=== PATIENT | female | born 1950 | race Caucasian/White ===

== ENCOUNTER 2017-01-10 12:32 | Inpatient (IN) | payer OTHER ==
[~2017-01-10] VITALS: Ht 167.6 cm; Wt 65.5 kg
[~2017-01-10 12:32] MED LIST: LORA-441 PO; SERT-165 PO; TRAZADONE PO
[2017-01-10 12:36] VITALS: Ht 167.6 cm; Wt 65.5 kg
[2017-01-10] MEDS ORDERED: METHYLPREDNISOLONE 125 MG INJ IV STA (13:02)
[2017-01-10] MEDS ORDERED: ALBUTEROL 0.5% (NEB) 2.5 MG/0.5 ML AMP INH STA (13:02)
[2017-01-10] MEDS ORDERED: IPRATROPIUM (NEB) 0.5 MG/2.5 ML AMP INH STA (13:02)
[2017-01-10 13:30] LABS: ABNORMAL IP MESSAGE 1; BASOPHILS % 0.3 % (0.0-2.0); EOSINOPHILS # 0.2 10^3/ul (0.0-0.5); EOSINOPHILS % 1.9 % (0.0-7.0); HEMATOCRIT 35.9 % (37.0-47.0); HEMOGLOBIN 12.3 g/dl (12.0-16.0); LYMPHOCYTES # 0.9 10^3/ul (0.8-2.9); LYMPHOCYTES % 9.8 % (15.0-51.0); MEAN CORPUSCULAR HEMOGLOBIN 31.6 pg (29.0-33.0); MEAN CORPUSCULAR HGB CONC 34.3 g/dl (32.0-37.0); MEAN CORPUSCULAR VOLUME 92.3 fl (82.0-101.0); MEAN PLATELET VOLUME 9.2 fl (7.4-10.4); MONOCYTE # 0.8 10^3/ul (0.3-0.9); MONOCYTES % 9.4 % (0.0-11.0); NEUTROPHIL # 6.8 10^3/ul (1.6-7.5); NEUTROPHILS % 77.4 % (39.0-77.0); PLATELET COUNT 232 10^3/UL (140-415); RED BLOOD COUNT 3.89 10^6/ul (4.20-5.40); WHITE BLOOD COUNT 8.9 10^3/ul (4.8-10.8)
[2017-01-10 13:40] LABS: POSITIVE DIFF @See below
[2017-01-10 13:53] LABS: ANION GAP 16 (8-16); BLOOD UREA NITROGEN 20 mg/dl (7-20); CALCIUM 9.8 mg/dl (8.4-10.2); CARBON DIOXIDE 26 mmol/L (21-31); CHLORIDE 103 mmol/L (97-110); CREATININE 0.99 mg/dl (0.44-1.00); GLUCOSE 86 mg/dl (70-220); POTASSIUM 3.3 mmol/L (3.5-5.1); SODIUM 142 mmol/L (135-144)
--- NOTE | 2017-01-10 13:58 | RADRPT ---
PROCEDURE: Chest Radiograph. CLINICAL INDICATION: Chest pain. TECHNIQUE: Single frontal chest radiograph. COMPARISON: 01/01/2016 FINDINGS: The cardiomediastinal silhouette is within normal limits. There is interval development of mild tae ateral lower lobe atelectasis versus infiltrate. Minimal infiltrate is also seen in the right mid l chuy. Otherwise, there is no significant interval change. The bones are intact. IMPRESSION: Interval development of bilateral lower lobe infiltrate versus atelectasis. Mild right mid lung infi ltrate, also new. RPTAT: JJ .Ritesh Sahu MD, MD Date Time Electronically viewed and signed by .Ritesh Sahu MD, on 01/10/2017 13:58 .A/
[2017-01-10] MEDS ORDERED: LEVO75TA65 PO (14:02)
[2017-01-10] MEDS ORDERED: SERT100T PO (14:04)
[2017-01-10] MEDS ORDERED: ADV25050 INHALATION (14:05)
[2017-01-10] MEDS ORDERED: TRAZ300T15 PO (14:05)
[2017-01-10] MEDS ORDERED: LORA0.5T PO (14:05)
[2017-01-10] MEDS ORDERED: ALBU8.5H3 INH (14:06)
[2017-01-10] MEDS ORDERED: FLUT16SP17 NASAL (14:06)
[2017-01-10] MEDS ORDERED: SODIUM CHLORIDE 0.9% 1L BAG IV* STA (14:08)
[2017-01-10 14:12] LABS: TROPONIN-I < 0.012 ng/ml (0.00-0.12)
[2017-01-10] MEDS ORDERED: CEFTRIAXONE 1 GM/50 ML (PMX) 50 ML IVPB STA (14:30)
[2017-01-10] MEDS ORDERED: AZITHROMYCIN 500MG/NS (PMX) 250 ML IV STA (14:30)
[2017-01-10] MEDS ORDERED: SOD CHLORIDE 0.9% 1,000 ML IV SCH (14:49)
--- NOTE | 2017-01-10 14:54 | ERD ---
ER Documentation Chief Complaint Chief Complaint sent by pmd for low o2 sat,cough, sob,colds,L ear pain and ORTEGA since friday HPI This is a 66-year-old female who presents to the emergency room for evaluation of shortness of breath. This patient was seen at her primary care physician's office, Dr. Glass. The patient was seen by another physician and was sent to the emergency room for evaluation of cough, shortness of breath and low oxygen. According to the physician the patient did have pulse oxygen level of 85%. She states that she is short of breath and has had a dry cough. She has been using her albuterol without relief. She denies any active chest pain at this time but does state when she takes a deep breath and she does feel slight chest pain and states that her cough is worse with deep inspiration as well. The patient denies any fevers or chills but does state that she is had a left earache and a mild headache. ROS All systems reviewed and are negative except as per history of present illness. Medications Home Meds Reported Medications Fluticasone Propionate* (Fluticasone Propionate* Nasal) 50 Mcg/Guion - 16 Gm Guion.susp, 1 SPRAY NASAL DAILY, #1 BOTTLE TO EACH NOSTRIL 01/10/17 Albuterol Sulfate* (Proair HFA*) 8.5 Gm Hfa.aer.ad, 2 PUFF INH Q6H Y for WHEEZING AND SOB, #1 INHALER 01/10/17 Salmeterol Xinaf/Fluticasone* (Advair*) 250-50 Diskus Inhaler, 1 INH INHALATION BID, #1 INHALER 01/10/17 Trazodone Hcl* (Trazodone Hcl*) 300 Mg Tablet, 300 MG PO QHS, #30 TAB 01/10/17 Lorazepam* (Lorazepam*) 0.5 Mg Tablet, 0.25 MG PO TID Y for ANXIETY, TAB 01/10/17 Sertraline Hcl* (Zoloft*) 100 Mg Tablet, 250 MG PO QHS, #60 TAB 01/10/17 Levothyroxine Sodium* (Levoxyl*) 75 Mcg Tablet, 75 MCG PO BEFORE BREAKFAST, #30 TAB 01/10/17 Discontinued Reported Medications Lorazepam* (Ativan*) 0.5 Mg Tablet, 0.5 MG PO DAILY Y 02/05/13 Sertraline Hcl* (Sertraline Hcl*) 100 Mg Tablet, 150 MG PO DAILY 02/05/13 [Trazadone] No Conflict Check, 100 MG PO DAILY 02/05/13 Allergies Allergies: Coded Allergies: Sulfa (Sulfonamide Antibiotics) (Verified Allergy, Unknown, STOMACHE ACHE , 01/10/17) PMhx/Soc History of Surgery: Yes (ovarian cyst, hysterectomy, appendectomy) Anesthesia Reaction: No Hx Neurological Disorder: No Hx Respiratory Disorders: Yes (asthma) Hx Cardiac Disorders: No Hx Psychiatric Problems: No Hx Miscellaneous Medical Probl: No Hx Alcohol Use: Yes (socially) Hx Substance Use: No Hx Tobacco Use: No (quit 5 years ago) Smoking Status: Never smoker Physical Exam Vitals Vital Signs Date Time Temp Pulse Resp B/P Pulse Ox O2 Delivery O2 Flow Rate FiO2 01/10/17 13:52 99 18 116/63 98 Nasal Cannula 2.0 01/10/17 13:15 Nasal Cannula 2 01/10/17 13:10 92 22 93 Nasal Cannula 2.0 01/10/17 12:36 99.9 97 22 119/59 88 Physical Exam INITIAL VITAL SIGNS: Reviewed by me GENERAL: The patient is well developed and appropriate for usual state of health in no apparent distress HEENT: Pupils equal, round, and reactive to light. EOMI. There is no scleral icterus. NECK: C-spine is soft and supple, there is no meningismus. There is no cervical lymphadenopathy. LUNGS: Coarse breath sounds bilaterally with end expiratory wheezing bilaterally HEART: Regular rate and rhythm, no murmurs, clicks, rubs or gallops. ABDOMEN: Soft, non-tender, non-distended. There are bowel sounds in all four quadrants. No rebound or guarding. EXTREMITIES: There is no peripheral cyanosis or edema. No focal swelling or erythema. NEUROLOGICAL: The patient moves all four extremities with 5/5 strength. Cranial nerves II - XII are intact. Normal gait. Alert and oriented SKIN: There is no apparent rash or petechiae. HEME/LYMPHATIC: There is no evidence of excessive bruising or lymphedema. PSYCHIATRIC: The patient does not appear anxious or depressed. Result Diagram: 01/10/17 1310 01/10/17 1310 Results 24 hrs Laboratory Tests Test 01/10/17 13:10 White Blood Count 8.910^3/ul Red Blood Count 3.8910^6/ul Hemoglobin 12.3g/dl Hematocrit 35.9% Mean Corpuscular Volume 92.3fl Mean Corpuscular Hemoglobin 31.6pg Mean Corpuscular Hemoglobin Concent 34.3g/dl Red Cell Distribution Width 13.0% Platelet Count 23230^3/UL Mean Platelet Volume 9.2fl Neutrophils % 77.4% Lymphocytes % 9.8% Monocytes % 9.4% Eosinophils % 1.9% Basophils % 0.3% Nucleated Red Blood Cells % 0.0/100WBC Neutrophils # 6.810^3/ul Lymphocytes # 0.910^3/ul Monocytes # 0.810^3/ul Eosinophils # 0.210^3/ul Basophils # 0.010^3/ul Nucleated Red Blood Cells # 0.010^3/ul Sodium Level 142mmol/L Potassium Level 3.3mmol/L Chloride Level 103mmol/L Carbon Dioxide Level 26mmol/L Anion Gap 16 Blood Urea Nitrogen 20mg/dl Creatinine 0.99mg/dl Glucose Level 86mg/dl Calcium Level 9.8mg/dl Troponin I < 0.012ng/ml Current Medications Medications (Trade) Dose Ordered Sig/Ibeth Route PRN Reason Start Time Stop Time Status Last Admin Dose Admin Albuterol (Proventil 0.5% (Neb)) 10 mg ONCE STAT INH 01/10/17 13:02 01/10/17 13:03 DC 01/10/17 13:10 Ipratropium Black (Atrovent 0.02% (Neb)) 1 mg ONCE STAT INH 01/10/17 13:02 01/10/17 13:03 DC 01/10/17 13:10 Methylprednisolone Sodium Succinate (Solu-Medrol) 125 mg ONCE STAT IV 01/10/17 13:02 01/10/17 13:03 DC 01/10/17 13:14 Sodium Chloride 2100 ml 2,100 ml BOLUS OVER 2 HOURS STAT IV* 01/10/17 14:08 01/10/17 14:10 DC 01/10/17 14:40 Azithromycin 250 ml @ 250 mls/hr ONCE STAT IV 01/10/17 14:30 01/10/17 15:29 Ceftriaxone Sodium (Rocephin) 50 ml @ 100 mls/hr ONCE STAT IVPB 01/10/17 14:30 01/10/17 14:59 01/10/17 14:39 Procedures/MDM EKG: Rate/Rhythm: [Normal Sinus Rhythm] QRS, ST, T-waves: [No changes consistent w/ acute ischemia] Impression: [No evidence of ischemia or arrhythmia] Chest X-ray 1V Interpreted by me: Soft Tissue: No acute abnormalities Bones: No acute abnormalities Mediastinum/Cardiac Silhouette/Lungs: Interval development of bilateral lower lobe infiltrate versus atelectasis. Mild right mid lung infiltrate, also new. This is a 66-year-old female who presents to the emergency room for evaluation of shortness of breath. When I evaluated this patient she had a pulse ox of 88 % on room air. She has coarse breath sounds bilaterally with end expiratory wheezing. The patient was slightly tachypneic with a respiratory rate of 22 and her heart rate was 92 bpm. The patient underwent lab work and was given a breathing treatment. This patient did undergo an x-ray which does show bilateral infiltrates and mid right lung infiltrate. The patient does not have any leukocytosis however given her age, hypoxia, and tachypnea she will be placed in for admission at this time. The patient was given 30 cc/kg of IV normal saline, blood and urine cultures were obtained and the patient was started on Rocephin and azithromycin. The patient will be admitted to her panel physician at this time and will be placed on the telemetry floor for acute hypoxic respiratory failure with pneumonia Critical Care: Excluding all billable procedures Time: 38 minutes Treatments/Evaluations: Close monitoring and treatment of unstable vital signs, cardiorespiratory, and neurologic status, while maintaining tight balance of fluid, respiratory, and cardiac interventions. Departure Diagnosis: Primary Impression: Acute respiratory failure with hypoxia Additional Impression: Bilateral pneumonia Condition: [place] SHERIDANDAVID KHAN Jan 10, 2017 14:54
[2017-01-10] MEDS ORDERED: ONDANSETRON 4 MG INJ IV PRN ×2 (15:00→16:00)
[2017-01-10] MEDS ORDERED: ACETAMINOPHEN 325 MG TAB PO PRN ×2 (15:00→16:00)
[2017-01-10 15:49] VITALS: PULSE 104
[2017-01-10 16:00] VITALS: PULSE 104
[2017-01-10] MEDS ORDERED: DOCUSATE SODIUM 100 MG CAP PO PRN (16:00)
[2017-01-10] MEDS ORDERED: NACL 0.9% 3 ML SYG IV SCH (16:00)
[2017-01-10] MEDS ORDERED: MAGNESIUM HYDROXIDE 30ML CUP PO PRN (16:00)
[2017-01-10] MEDS ORDERED: GUAIFENESIN/CODEINE 5ML CUP PO PRN (16:00)
[2017-01-10 16:20] VITALS: BP 123/68; RESP 18
[2017-01-10] MEDS ORDERED: POTASSIUM CHLORIDE (SR) 20 MEQ TAB PO STA (16:21)
--- NOTE | 2017-01-10 16:26 | HP ---
Date/Time of Note Date/Time of Note DATE: 01/10/17 TIME: 16:08 Assessment/Plan VTE Prophylaxis VTE Prophylaxis Intervention: LMWH Lines/Catheters IV [facility] (from [facility]): Saline Lock Assessment/Plan Assessment/Plan 1. Sepsis secondary to Pneumonia with - Patient found to have tachycardia, tachypnea and elevated lactic acid of 2.6 - given fluids in ED and started on IV antibiotics - Will continue to trend lactic acids - CXR showed bilateral infiltrates vs atelectasis with Mild right mid lung infiltrate 2. Acute respiratory failure with hypoxia secondary to asthma exacerbation - Neb treatments - O2 to maintain saturating >90% - Pulmonology consult placed for further evaluation 3. h/o Bronchial asthma since - Patient has yearly exacerbations and states she needs her rescue inhaler at least 2-3 times a week - On advair 250/50 BID - No wheezing appreciated so no need for steroids at this time - Not on home O2 - Does not follow with director of social work as outpatient 4. Depression - Continue on home medications 5. Anxiety - Continue on home medications 6. Insomnia - Trazadone qhs 7. hypokalemia - 3.3 replaced 8. Hypothyroidism - Will check TSH - continue on thyroid replacement 9. Diet - Regular diet 10. DVT ppx - Lovenox 11. GI ppx - PPI 12. Code Status - DNR/DNI 13. Disposition - Admit to telemetry for close observation given frequent desaturations HPI/ROS Admit Date/Time Admit Date/Time Jan 10, 2017 at 14:50 Hx of Present Illness 66 yo F with PMH bronchial asthma with year exacerbations, depression, anxiety, insomnia, and hypothyroidism presented to ED after being sent by her PCP for hypoxia. Patient recently returned from a trip to [place] and [place] and has been experiencing coughing since Friday. Patient states people she was traveling with developed a cold which they passed to her. She states her symptoms started as a head cold and progressed to SOB with associated productive cough with yellow/white sputum, occasional wheezing, and subjective fevers. Patient states she has been getting progressively worse and using her rescue inhaler with no relief. She has also been using guaifenesin as well for cough. She was found to be saturating 85% on room air at her PCP office. When she presented to the ED she was found to be saturating 88% and given neb treatments, steroids, and started on antibiotics after finding of pneumonia on CXR. Patient states she has yearly exacerbations and usually presents to the ED but is discharged after stabilized. Patient has never needed to be intubated and is DNR/DNI. Denies any chest pain, dizziness, nausea, vomiting, or GI issues. ROS All 12 systems reviewed and pertinent positives per HPI. All others reviewed and are negative. Constitutional: No chills, No disoriented, No fatigue, No nausea Eyes: no complaints ENT: congestion, discharge, No bleeding, No sore throat Respiratory: cough, pain, shortness of breath, sputum, wheezing Cardiovascular: No chest pain, No edema, No lightheadedness, No orthopenea, No palpitations Gastrointestinal: No blood, No constipation, No diarrhea, No nausea, No pain, No vomiting Musculoskeletal: no complaints Skin: no complaints Neurologic: no complaints Endocrine: no complaints Lymphatic: no complaints Psychological: anxiety, depression, other (insomnia) Immunologic: no complaints PMH/Family/Social Past Medical History Medical History: hypothyroid, other (depression, anxiety, insomnia, brochial asthma) Past Surgical History Past Surgical Hx: other (hysterectomy, lump removed from back, cysts removed from ovaries) Family History Significant Family History: heart disease Social History Alcohol Use: none Smoking Status: Never smoker Drug Use: none Exam/Review of Systems Vital Signs Vitals Vital Signs Date Time Temp Pulse Resp B/P Pulse Ox O2 Delivery O2 Flow Rate FiO2 01/10/17 15:49 104 01/10/17 15:12 18 126/77 96 Nasal Cannula 2.0 01/10/17 12:36 99.9 Exam Constitutional: alert, oriented, well developed, No distress Psych: nl mood/affect Head: atraumatic, normocephalic Eyes: EOMI, PERRL, nl sclera ENMT: mucosa pink and moist Neck: non-tender, supple Respiratory: clear to auscultation, diminished breath sounds, No crackles/rales, No wheezing Cardiovascular: regular rate and rhythm, No irregular rhythm, No murmurs/extra sounds, No systolic murmur Gastrointestinal: bowel sounds, non-tender, soft, No distended, No rebound or guarding Musculoskeletal: nl extremities to inspection, No joint tenderness Extremities: No clubbing, No cyanosis, No edema Neurological: LOCAL OPERATOR II-XII intact, nl mental status, nl speech Skin: nl turgor Lymph: nl lymph nodes Labs Result Diagram: 01/10/17 1310 01/10/17 1310 Medications Medications Current Medications Sodium Chloride (NS) 1,000 ml @ 80 mls/hr [id number] IV Last administered on t 15:42; Admin Dose 80 MLS/HR; Start 01/10/17 at 14:49; Stop 01/11/17 at 03:18 Fluticasone Propionate (Flonase 0.05% Nasal) 1 spray DAILY NASAL ; Start at 17:00 Lorazepam (Ativan) 0.25 mg TID PRN PO ANXIETY; Start 01/10/17 at 16:00 Salmeterol Xinafoate/ Fluticasone (Advair 250/50 Diskus) 1 inh BID INH ; Start 01/10/17 at 17:00 Sertraline HCl (Zoloft) 250 mg QHS PO ; Start 01/10/17 at 21:00; Status UNV Trazodone HCl (Desyrel) 300 mg QHS PO ; Start 01/10/17 at 21:00; Status UNV Procedures Procedures PROCEDURE: Chest Radiograph. CLINICAL INDICATION: Chest pain. TECHNIQUE: Single frontal chest radiograph. COMPARISON: 01/01/2016 FINDINGS: The cardiomediastinal silhouette is within normal limits. There is interval development of mild bilateral lower lobe atelectasis versus infiltrate. Minimal infiltrate is also seen in the right mid lung. Otherwise, there is no significant interval change. The bones are intact. IMPRESSION: Interval development of bilateral lower lobe infiltrate versus atelectasis. Mild right mid lung infiltrate, also new. MALVIN NASH MD Jan 10, 2017 16:18
[2017-01-10] MEDS: PANTOPRAZOLE (EC) 40 MG TAB PO SCH (16:54)
[2017-01-10] MEDS: ENOXAPARIN 40 MG/0.4 ML SYG SC SCH (16:55)
[2017-01-10] MEDS: ALBUTEROL 0.083% (NEB) 2.5 MG/3 ML AMP HHN SCH ×2 (17:02→21:20)
[2017-01-10] MEDS: FLUTICASONE 0.05% 16 GM NAS SPRAY NASAL SCH (17:57)
[2017-01-10] MEDS: SALMETEROL/FLUTICASONE 250/50 INHA INH SCH (17:58)
[2017-01-10 19:33] LABS: CREATINE KINASE 50 IU/L (23-200)
[2017-01-10 19:46] LABS: CK-MB 1.05 ng/ml (0.0-2.4)
[2017-01-10 19:57] LABS: TROPONIN-I < 0.012 ng/ml (0.00-0.12)
[2017-01-10] MEDS ORDERED: POTASSIUM CHLORIDE (SR) 20 MEQ TAB PO ONE (20:00)
[2017-01-10 20:21] VITALS: PULSE 88
[2017-01-10 20:35] VITALS: BP 128/61; RESP 18
[2017-01-10] MEDS: SERTRALINE 100 MG TAB PO SCH (20:43)
[2017-01-10] MEDS: traZODone 100 MG TAB PO SCH (20:43)
[2017-01-10] MEDS ORDERED: SOD CHLORIDE 0.9% 500 ML IV ONE (23:00)
[2017-01-11] VITALS (13 sets, daily range): BP systolic 106–127; BP diastolic 59–66; PULSE 62–94; RESP 17–20
[2017-01-11] MEDS: LORAZEPAM 0.5 MG TAB PO PRN ×2 (00:22→23:24)
[2017-01-11 01:52] LABS: CREATINE KINASE 48 IU/L (23-200)
[2017-01-11 02:05] LABS: CK-MB 1.44 ng/ml (0.0-2.4)
[2017-01-11 02:09] LABS: TROPONIN-I < 0.012 ng/ml (0.00-0.12)
[2017-01-11] MEDS: LEVOTHYROXINE 75 MCG TAB PO SCH (07:26)
[2017-01-11] MEDS: PANTOPRAZOLE (EC) 40 MG TAB PO SCH (07:26)
[2017-01-11 08:18] LABS: ABNORMAL IP MESSAGE 1; HEMATOCRIT 30.8 % (37.0-47.0); HEMOGLOBIN 10.3 g/dl (12.0-16.0); MEAN CORPUSCULAR HEMOGLOBIN 31.3 pg (29.0-33.0); MEAN CORPUSCULAR HGB CONC 33.4 g/dl (32.0-37.0); MEAN CORPUSCULAR VOLUME 93.6 fl (82.0-101.0); MEAN PLATELET VOLUME 9.6 fl (7.4-10.4); PLATELET COUNT 204 10^3/UL (140-415); RED BLOOD COUNT 3.29 10^6/ul (4.20-5.40); RED CELL DISTRIBUTION WIDTH 13.2 % (11.5-14.5); WHITE BLOOD COUNT 9.9 10^3/ul (4.8-10.8)
[2017-01-11] MEDS: ALBUTEROL 0.083% (NEB) 2.5 MG/3 ML AMP HHN SCH ×4 (08:30→20:00)
[2017-01-11 08:31] LABS: POSITIVE DIFF @See below
[2017-01-11 08:36] LABS: CALCIUM 9.4 mg/dl (8.4-10.2); CREATININE 0.69 mg/dl (0.44-1.00); MAGNESIUM 1.9 mg/dl (1.7-2.5); PHOSPHORUS 2.6 mg/dl (2.5-4.9); POTASSIUM 5.4 mmol/L (3.5-5.1)
[2017-01-11 09:05] LABS: THYROID STIMULATING HORMONE 0.923 MIU/L (0.465-4.680)
[2017-01-11] MEDS: FLUTICASONE 0.05% 16 GM NAS SPRAY NASAL SCH (09:26)
[2017-01-11] MEDS: SALMETEROL/FLUTICASONE 250/50 INHA INH SCH ×2 (09:26→20:52)
--- NOTE | 2017-01-11 11:21 | PN ---
Date/Time of Note Date/Time of Note DATE: 01/11/17 TIME: 11:21 Assessment/Plan VTE Prophylaxis VTE Prophylaxis Intervention: LMWH Lines/Catheters [facility] Saline Lock Urinary Cath still in place: No (NO F/C) Assessment/Plan Assessment/Plan 1. Sepsis secondary to Pneumonia - Improving and remains afebrile - WBC improving and Lactic acid normalized - Antibiotics on board - CXR showed bilateral infiltrates vs atelectasis with Mild right mid lung infiltrate - incentive spirometry 2. Acute respiratory failure with hypoxia secondary to asthma exacerbation - Neb treatments - O2 to maintain saturating >90% - Pulmonology consult placed for further evaluation 3. h/o Bronchial asthma since - Patient has yearly exacerbations and states she needs her rescue inhaler at least 2-3 times a week - On advair 250/50 BID - No wheezing appreciated so no need for steroids at this time - Does not follow with solar mechanical engineer as outpatient 4. Depression - Continue on home medications 5. Anxiety - Continue on home medications 6. Insomnia - Trazodone qhs 7. hyperkalemia - Most likely secondary to being replaced yesterday - No acute issues and will monitor. 8. Hypothyroidism - TSH nl - continue on thyroid replacement 9. Congestion - Will try Claritin D and Mucinex as needed 10. Disposition - Awaiting Pulm consult Subjective 24 Hr Interval Summary Free Text/Dictation Patient states feeling better but still experiencing nasal congestion and coughing up sputum. Denies any new complaints and no acute overnight events. Exam/Review of Systems Vital Signs Vitals Vital Signs Date Time Temp Pulse Resp B/P Pulse Ox O2 Delivery O2 Flow Rate FiO2 01/11/17 11:20 99.3 88 17 127/63 93 01/11/17 09:33 Nasal Cannula 6.0 01/11/17 08:30 21 Intake and Output 01/10/17 01/10/17 01/11/17 15:00 23:00 07:00 Intake Total 550 ml Balance 550 ml Exam Constitutional: alert, oriented, well developed, No distress Head: atraumatic, normocephalic Eyes: EOMI, PERRL, nl sclera ENMT: mucosa pink and moist Respiratory: clear to auscultation, diminished breath sounds, No crackles/rales , No wheezing Cardiovascular: regular rate and rhythm, No irregular rhythm, No murmurs/extra sounds, No systolic murmur Gastrointestinal: bowel sounds, non-tender, soft, No distended, No rebound or guarding Musculoskeletal: nl extremities to inspection, No joint tenderness Extremities: No clubbing, No cyanosis, No edema Neurological: MEDICAL EQUIPMENT REPAIR TECHNICIAN II-XII intact, nl mental status, nl speech Lymph: nl lymph nodes Results Result Diagram: 01/11/17 0712 01/11/17 0712 Results 24 hrs Laboratory Tests Test 01/10/17 13:10 01/10/17 14:15 01/10/17 16:11 01/10/17 19:09 White Blood Count 8.9 # Red Blood Count 3.89 L Hemoglobin 12.3 Hematocrit 35.9 L Mean Corpuscular Volume 92.3 Mean Corpuscular Hemoglobin 31.6 Mean Corpuscular Hemoglobin Concent 34.3 Red Cell Distribution Width 13.0 Platelet Count 232 Mean Platelet Volume 9.2 # Neutrophils % 77.4 H Lymphocytes % 9.8 L Monocytes % 9.4 Eosinophils % 1.9 Basophils % 0.3 Nucleated Red Blood Cells % 0.0 Neutrophils # 6.8 Lymphocytes # 0.9 Monocytes # 0.8 Eosinophils # 0.2 Basophils # 0.0 Nucleated Red Blood Cells # 0.0 Sodium Level 142 Potassium Level 3.3 L Chloride Level 103 Carbon Dioxide Level 26 Anion Gap 16 Blood Urea Nitrogen 20 Creatinine 0.99 Glucose Level 86 Calcium Level 9.8 Troponin I < 0.012 < 0.012 Lactic Acid Level 2.8 *H 2.0 2.8 *H Creatine Kinase 50 Creatine Kinase Index 2.1 Creatinine Kinase MB (Mass) 1.05 Test 01/10/17 22:41 01/11/17 01:01 01/11/17 07:12 Lactic Acid Level 2.3 *H 1.6 0.9 Creatine Kinase 48 Creatine Kinase Index 3.0 Creatinine Kinase MB (Mass) 1.44 Troponin I < 0.012 White Blood Count 9.9 Red Blood Count 3.29 L Hemoglobin 10.3 L Hematocrit 30.8 L Mean Corpuscular Volume 93.6 Mean Corpuscular Hemoglobin 31.3 Mean Corpuscular Hemoglobin Concent 33.4 Red Cell Distribution Width 13.2 Platelet Count 204 Mean Platelet Volume 9.6 Neutrophils % Lymphocytes % Monocytes % Eosinophils % Basophils % Nucleated Red Blood Cells % 0.0 Neutrophils # Lymphocytes # Monocytes # Eosinophils # Basophils # Nucleated Red Blood Cells # Sodium Level 146 H Potassium Level 5.4 #H Chloride Level 113 H Carbon Dioxide Level 26 Anion Gap 12 Blood Urea Nitrogen 18 Creatinine 0.69 Glucose Level 123 Calcium Level 9.4 Phosphorus Level 2.6 Magnesium Level 1.9 Albumin 3.0 L Thyroid Stimulating Hormone (TSH) 0.923 Medications Medications Current Medications Fluticasone Propionate (Flonase 0.05% Nasal) 1 spray DAILY NASAL Last administered on 01/11/17 09:26; Admin Dose 1 SPRAY; Start 01/10/17 at 17:00 Lorazepam (Ativan) 0.25 mg TID PRN PO ANXIETY Last administered on 01/11/17 00:22; Admin Dose 0.25 MG; Start 01/10/17 at 16:00 Salmeterol Xinafoate/ Fluticasone (Advair 250/50 Diskus) 1 inh BID INH Last administered on 01/11/17 09:26; Admin Dose 1 INH; Start 01/10/17 at 17:00 Sertraline HCl (Zoloft) 250 mg QHS PO Last administered on 01/10/17 20:43; Admin Dose 250 MG; Start 01/10/17 at 21:00 Trazodone HCl (Desyrel) 300 mg QHS PO Last administered on 01/10/17 20:43; Admin Dose 300 MG; Start 01/10/17 at 21:00 Ondansetron HCl (Zofran Inj) 4 mg Q6H PRN IV NAUSEA AND/OR VOMITING; Start at 16:00 Acetaminophen (Tylenol Tab) 650 mg Q6H PRN PO PAIN LEVEL 1-3 OR FEVER Last administered on 01/10/17 16:54; Admin Dose 650 MG; Start 01/10/17 at 16:00 Docusate Sodium (Colace) 100 mg Q12H PRN PO CONSTIPATION; Start 01/10/17 at 16 :00 Magnesium Hydroxide (Milk Of Mag) 30 ml DAILY PRN PO CONSTIPATION; Start 01/10 at 16:00 Pantoprazole (Protonix Tab) 40 mg DAILY@06 PO Last administered on 01/11/17 07:26; Admin Dose 40 MG; Start 01/10/17 at 17:00 Enoxaparin Sodium 40 mg 40 mg Q24H SC Last administered on 10/20/17at 16:55; Admin Dose 40 MG; Start 01/10/17 at 17:00 Ceftriaxone Sodium 50 ml @ 100 mls/hr Q24H IVPB ; Start 01/11/17 at 13:00 Azithromycin (Zithromax 500mg/ NS (Pmx)) 250 ml @ 250 mls/hr Q24H IVPB ; Start 01/11/17 at 13:00 Loratadine/ Pseudoephedrine Sulfate (Claritin-D 12 Hr) 1 tab Q12 PO ; Start at 12:30; Stop 01/16/17 at 12:29 Guaifenesin/ Dextromethorphan (Mucinex Dm) 1 tab BID PO ; Start 01/11/17 at 12: 30 MALVIN NASH MD Jan 11, 2017 11:21
[2017-01-11 11:33] LABS: BURR CELLS 1+ (0-0); METAMYELOCYTES %M 1 % (0-0); MONOCYTES % (M) 3 % (0-11); MYELOCYTES % (M) 1 % (0-0); OVALOCYTES 1+ (0-0); PLATELET ESTIMATE NORMAL; POIKILOCYTOSIS 2+ (0-0)
[2017-01-11] MEDS ORDERED: GUAIFENESIN/CODEINE 5ML CUP PO PRN (12:00)
[2017-01-11] MEDS: GUAIFENESIN/DM (SR) TAB PO SCH ×2 (12:44→20:53)
[2017-01-11] MEDS: LORATADINE/PSEUDOEPHED (SR) TAB PO SCH ×2 (12:44→20:54)
[2017-01-11] MEDS: CEFTRIAXONE 1 GM/50 ML (PMX) 50 ML IVPB SCH (12:45)
[2017-01-11] MEDS: AZITHROMYCIN 500MG/NS (PMX) 250 ML IVPB SCH (14:13)
[2017-01-11] MEDS: ENOXAPARIN 40 MG/0.4 ML SYG SC SCH (17:14)
[2017-01-11] MEDS: METHYLPREDNISOLONE 40 MG INJ IV SCH (20:53)
[2017-01-11] MEDS: traZODone 100 MG TAB PO SCH (20:53)
[2017-01-11] MEDS: SERTRALINE 100 MG TAB PO SCH (20:54)
[2017-01-12] VITALS (12 sets, daily range): BP systolic 115–148; BP diastolic 61–81; PULSE 64–82; RESP 18–21
--- NOTE | 2017-01-12 01:55 | RADRPT ---
AMENDMENT: 01/12/2017 2:02:53 AM Pablo James MD ADDENDUM: Correction: FINDINGS: No evident thoracic aortic or coronary artery calcifications. PROCEDURE: CT Chest without contrast. CLINICAL INDICATION: Right lung interstitial changes. TECHNIQUE: CT scan of the chest without contrast was performed on a multidetector high-resolution CT scanner. Coronal and sagittal reformatted images were obtained from the axial source images. The total exam CTDI equals 6.90 mGy and the total exam DLP equals 250.77. mGy-cm. COMPARISON: Plain film chest dated 01/10/2017 FINDINGS: Dense bilateral dependent lower lobe air space disease with air bronchograms. Findings are compatibl e with bilateral lower lobe pneumonias. Patchy air space disease in the right middle lobe and in the dependent posterior right upper lobe. Geographic ground-glass opacification in the right apex measu res 73 x 44 x 35 mm, and this may represent inflammatory changes of pneumonia versus adenocarcinoma in situ. Mild inflammatory changes in the region of the anterior medial right upper lobe and lingula The mediastinum is unremarkable without evidence for mass or lymphadenopathy. The vascular structur es of the mediastinum are normal in course and caliber. Aortic vascular calcifications and coronary artery calcifications are present. The heart size is normal without evidence for pericardial thick ening or effusion. The axillary regions, subpectoral regions, and supraclavicular regions are all unremarkable. The brar rrounding chest wall is unremarkable. Imaging obtained through the upper abdomen reveals no acute a bnormality. The surrounding osseous structures are remarkable for degenerative spondylosis of the s pine. No osteolytic or osteoblastic lesion is detected. IMPRESSION: 1. Dense bilateral lung base pneumonias with air bronchograms. 2. Patchy pneumonias in right middle lobe and right upper lobe. 3. Large geographic region of ground-glass opacity in right apex may represent inflammatory changes of pneumonia versus adenocarcinoma in situ. RPTAT: [facility] Physician [place] Date Time Electronically viewed and signed by Physician [place] on 01/12/2017 02:04 RS/
[2017-01-12] MEDS: PANTOPRAZOLE (EC) 40 MG TAB PO SCH (06:48)
[2017-01-12] MEDS: LEVOTHYROXINE 75 MCG TAB PO SCH (06:49)
[2017-01-12] MEDS: GUAIFENESIN/DM (SR) TAB PO SCH ×2 (09:10→20:27)
[2017-01-12] MEDS: METHYLPREDNISOLONE 40 MG INJ IV SCH ×2 (09:10→20:26)
[2017-01-12] MEDS: FLUTICASONE 0.05% 16 GM NAS SPRAY NASAL SCH (09:11)
[2017-01-12] MEDS: LORATADINE/PSEUDOEPHED (SR) TAB PO SCH ×2 (09:11→22:45)
[2017-01-12] MEDS: SALMETEROL/FLUTICASONE 250/50 INHA INH SCH ×2 (09:11→20:26)
[2017-01-12 09:12] LABS: ABNORMAL IP MESSAGE 1; HEMATOCRIT 30.9 % (37.0-47.0); HEMOGLOBIN 10.4 g/dl (12.0-16.0); MEAN CORPUSCULAR HEMOGLOBIN 31.4 pg (29.0-33.0); MEAN CORPUSCULAR HGB CONC 33.7 g/dl (32.0-37.0); MEAN CORPUSCULAR VOLUME 93.4 fl (82.0-101.0); MEAN PLATELET VOLUME 9.2 fl (7.4-10.4); PLATELET COUNT 250 10^3/UL (140-415); RED BLOOD COUNT 3.31 10^6/ul (4.20-5.40); RED CELL DISTRIBUTION WIDTH 13.3 % (11.5-14.5); WHITE BLOOD COUNT 11.9 10^3/ul (4.8-10.8)
[2017-01-12 09:15] LABS: POSITIVE DIFF @See below
--- NOTE | 2017-01-12 09:25 | PN ---
Date/Time of Note Date/Time of Note DATE: 01/12/17 TIME: 09:25 Assessment/Plan VTE Prophylaxis VTE Prophylaxis Intervention: LMWH Lines/Catheters IV [facility] Type (from [facility] Saline Lock Urinary Cath still in place: No (NO F/C) Assessment/Plan Assessment/Plan 1. Sepsis secondary to Pneumonia - CT scan performed showed bl/ lower pneumonia, RML, and RUL - Improving and remains afebrile - WBC improving and Lactic acid normalized - Antibiotics on board and will d/c Ceftriaxone and continue on Azithromycin - CXR showed bilateral infiltrates vs atelectasis with Mild right mid lung infiltrate - incentive spirometry - Chest PT ordered 2. Acute respiratory failure with hypoxia secondary to asthma exacerbation - Neb treatments - O2 to maintain saturating >90% - Pulmonology on board and consultation appreciated. Started on Solumedrol and atrovent albuterol q4hr 3. h/o Bronchial asthma since - Patient has yearly exacerbations and states she needs her rescue inhaler at least 2-3 times a week - On advair 250/50 BID - Does not follow with nursery worker as outpatient 4. Depression - Continue on home medications 5. Anxiety - Continue on home medications 6. Insomnia - Trazodone qhs 7. hyperkalemia - resolved 8. Hypothyroidism - TSH nl - continue on thyroid replacement 9. Congestion - Claritin D and Mucinex as needed 10. Constipation - Miralax requested 11. Disposition -Continue monitoring until improvement of respiratory status. Subjective 24 Hr Interval Summary Free Text/Dictation Patient having coughing spells but able to produce sputum. Does feel as if breathing is slightly better. No acute overnight events. Exam/Review of Systems Vital Signs Vitals Vital Signs Date Time Temp Pulse Resp B/P Pulse Ox O2 Delivery O2 Flow Rate FiO2 01/12/17 08:44 98.0 70 18 128/74 98 01/11/17 20:50 Nasal Cannula 3.0 01/11/17 08:30 21 Intake and Output 01/11/17 01/11/17 01/12/17 15:00 23:00 07:00 Intake Total 1750 ml 500 ml Balance 1750 ml 500 ml Exam Constitutional: alert, oriented, well developed, No distress Head: atraumatic, normocephalic Eyes: EOMI, PERRL, nl sclera ENMT: mucosa pink and moist Respiratory: Course breath sounds right lung and left lower lung. No wheezing appreciated. Wet cough Cardiovascular: regular rate and rhythm, No irregular rhythm, No murmurs/extra sounds, No systolic murmur Gastrointestinal: bowel sounds, non-tender, soft, No distended, No rebound or guarding Musculoskeletal: nl extremities to inspection, No joint tenderness Extremities: No clubbing, No cyanosis, No edema Neurological: GERIATRIC NURSE PRACTITIONER II-XII intact, nl mental status, nl speech Lymph: nl lymph nodes Results Result Diagram: 01/12/17 0831 01/11/17 0712 Results 24 hrs Laboratory Tests Test 01/12/17 08:31 White Blood Count 11.9 #H Red Blood Count 3.31 L Hemoglobin 10.4 L Hematocrit 30.9 L Mean Corpuscular Volume 93.4 Mean Corpuscular Hemoglobin 31.4 Mean Corpuscular Hemoglobin Concent 33.7 Red Cell Distribution Width 13.3 Platelet Count 250 # Mean Platelet Volume 9.2 Neutrophils % Lymphocytes % Monocytes % Eosinophils % Basophils % Nucleated Red Blood Cells % 0.0 Neutrophils # Lymphocytes # Monocytes # Eosinophils # Basophils # Nucleated Red Blood Cells # Medications Medications Current Medications Fluticasone Propionate (Flonase 0.05% Nasal) 1 spray DAILY NASAL Last administered on 01/12/17 09:11; Admin Dose 1 SPRAY; Start 01/10/17 at 17:00 Lorazepam (Ativan) 0.25 mg TID PRN PO ANXIETY Last administered on 01/11/17 23:24; Admin Dose 0.25 MG; Start 01/10/17 at 16:00 Salmeterol Xinafoate/ Fluticasone (Advair 250/50 Diskus) 1 inh BID INH Last administered on 01/12/17 09:11; Admin Dose 1 INH; Start 01/10/17 at 17:00 Sertraline HCl (Zoloft) 250 mg QHS PO Last administered on 01/11/17 20:54; Admin Dose 250 MG; Start 01/10/17 at 21:00 Trazodone HCl (Desyrel) 300 mg QHS PO Last administered on 01/11/17 20:53; Admin Dose 300 MG; Start 01/10/17 at 21:00 Ondansetron HCl (Zofran Inj) 4 mg Q6H PRN IV NAUSEA AND/OR VOMITING; Start at 16:00 Acetaminophen (Tylenol Tab) 650 mg Q6H PRN PO PAIN LEVEL 1-3 OR FEVER Last administered on 01/10/17 16:54; Admin Dose 650 MG; Start 01/10/17 at 16:00 Docusate Sodium (Colace) 100 mg Q12H PRN PO CONSTIPATION; Start 01/10/17 at 16 :00 Magnesium Hydroxide (Milk Of Mag) 30 ml DAILY PRN PO CONSTIPATION; Start 01/10 at 16:00 Pantoprazole (Protonix Tab) 40 mg DAILY@06 PO Last administered on 01/12/17 06:48; Admin Dose 40 MG; Start 01/10/17 at 17:00 Enoxaparin Sodium 40 mg 40 mg Q24H SC Last administered on 01/11/17 17:14; Admin Dose 40 MG; Start 01/10/17 at 17:00 Ceftriaxone Sodium 50 ml @ 100 mls/hr Q24H IVPB Last administered on 12:45; Admin Dose 100 MLS/HR; Start 01/11/17 at 13:00 Azithromycin (Zithromax 500mg/ NS (Pmx)) 250 ml @ 250 mls/hr Q24H IVPB Last administered on 01/11/17 14:13; Admin Dose 250 MLS/HR; Start 01/11/17 at 13: 00 Loratadine/ Pseudoephedrine Sulfate (Claritin-D 12 Hr) 1 tab Q12 PO Last administered on 01/12/17 09:11; Admin Dose 1 TAB; Start 01/11/17 at 12:30; Stop 01/16/17 at 12:29 Guaifenesin/ Dextromethorphan (Mucinex Dm) 1 tab BID PO Last administered on 09:10; Admin Dose 1 TAB; Start 01/11/17 at 12:30 Methylprednisolone Sodium Succinate (Solu-Medrol) 40 mg Q12 IV Last administered on 01/12/17 09:10; Admin Dose 40 MG; Start 01/11/17 at 21:00 MALVIN NASH MD Jan 12, 2017 09:25
[2017-01-12 09:31] LABS: ALBUMIN 3.2 g/dl (3.3-4.9); CALCIUM 8.8 mg/dl (8.4-10.2); CREATININE 0.73 mg/dl (0.44-1.00); MAGNESIUM 1.8 mg/dl (1.7-2.5); PHOSPHORUS 3.1 mg/dl (2.5-4.9); POTASSIUM 4.3 mmol/L (3.5-5.1)
[2017-01-12] MEDS: ALBUTEROL 0.083% (NEB) 2.5 MG/3 ML AMP HHN SCH ×4 (09:36→22:39)
[2017-01-12 10:39] LABS: METAMYELOCYTES %M 1 % (0-0); MONOCYTES % (M) 6 % (0-11); MYELOCYTES % (M) 4 % (0-0); PROMYELOCYTES % (M) 1 % (0-0)
[2017-01-12 10:40] LABS: ANISOCYTOSIS 1+ (0-0); MICROCYTOSIS 1+ (0-0); PLATELET ESTIMATE NORMAL; PROMYELOCYTES #M 0.1 10^3/ul (0-0)
[2017-01-12] MEDS: CEFTRIAXONE 1 GM/50 ML (PMX) 50 ML IVPB SCH (12:12)
[2017-01-12] MEDS: AZITHROMYCIN 500MG/NS (PMX) 250 ML IVPB SCH (12:12)
--- NOTE | 2017-01-12 12:34 | CONS ---
DATE OF ADMISSION: 01/10/2017 DATE OF CONSULTATION: 01/11/2017 TYPE OF CONSULTATION: Pulmonary. PRIMARY PHYSICIAN: Jose. REASON FOR CONSULTATION: Asthma. HISTORY OF PRESENT ILLNESS: Briefly, this is a 66-year-old lady with a history of asthma since [facility]; also history of tobacco smoke, quit about 13 years ago who has had exacerbations previously d ue to her asthma and has required corticosteroids, however, has never been intubated. The patient s tates that she was on a recent trip to [place] and [place] and began experiencing cough and some sub jective fevers upon her return. She was admitted yesterday with mild hypoxemic respiratory insuffic iency and findings consistent with an acute asthma exacerbation. PAST MEDICAL HISTORY: As noted above, also history of hypothyroidism, history of depression, anxiet y, and insomnia. PAST SURGICAL HISTORY: Hysterectomy, lump removed from back, cyst from the ovaries. FAMILY HISTORY: Noncontributory. REVIEW OF SYSTEMS: As noted in the HPI. SOCIAL HISTORY: No alcohol. Prior tobacco, quit in 2003. PHYSICAL EXAMINATION: VITAL SIGNS: Heart rate is 82, blood pressure is 118/59, oxygen saturation is 97% on 2 liters. HEENT: Normocephalic, atraumatic. NECK: Supple, no thyromegaly, no jugular venous distention. CARDIOVASCULAR: Regular rate and rhythm, S1, S2. No murmurs, rubs, or gallops. CHEST: There is diffuse wheezing, more prominent in the right lung zone than the left. There are also some areas suggestive of some egophony on the right side. ABDOMEN: Soft, nontender, no hepatosplenomegaly. EXTREMITIES: No cyanosis, clubbing or edema. LABORATORY DATA: WBC is 9.9, hemoglobin is 10.3. Lactic acid was 2.3, now is 0.9. Chem-7 is withi n normal limits. Chest x-ray shows some subtle right lung interstitial prominence and suggestion of some underlying b ronchiectasis. IMPRESSION: Acute asthma exacerbation, possibly induced by a viral tracheobronchitis/infectious bro nchiolitis. However, the findings on chest x-ray suggest there may be an element of maybe some bron chiectatic or micronodular disease, although there is no suspicion really for allergic bronchopulmon rosales aspergillosis. RECOMMENDATIONS: 1. Bronchodilators q.4 hours with albuterol and Atrovent. 2. Agree with current antibiotic coverage. However, would consider de-escalation. 3. Systemic corticosteroids to be initiated. 4. Will obtain a CT chest, noncontrast, to better evaluate lung parenchyma. 5. Mild lactic acidosis was likely due to beta adrenergic use and for management of her asthma whic h is now resolved. Dictated By: KAITLIN SANABRIA MD NK/NTS Conf#: [id number] DID#: [id number] CC: Jose DELATORRE; CRYSTAL NOLAN MD;*[facility]*
[2017-01-12] MEDS ORDERED: POLYETHYLENE GLYCOL 17 GM PACKET PO PRN (13:00)
--- NOTE | 2017-01-12 15:30 | CONS ---
Date/Time of Note Date/Time of Note DATE: 01/12/17 TIME: 15:28 Consult Date/Type/Reason Admit Date/Time Jan 10, 2017 at 14:50 Initial Consult Date Type of Consultation: Pulm Subjective Overall the same. Still with cough and wheezing. Objective Vital Signs Date Time Temp Pulse Resp B/P Pulse Ox O2 Delivery O2 Flow Rate FiO2 01/12/17 13:21 69 22 92 Nasal Cannula 3.0 01/12/17 12:41 98.0 131/68 01/11/17 08:30 21 Intake and Output 01/11/17 01/11/17 01/12/17 15:00 23:00 07:00 Intake Total 1750 ml 500 ml Balance 1750 ml 500 ml Exam HEENT: Normocephalic, atraumatic. NECK: Supple, no thyromegaly, no jugular venous distention. CARDIOVASCULAR: Regular rate and rhythm, S1, S2. No murmurs, rubs, or gallops. CHEST: There is diffuse wheezing, more prominent in the right lung zone than the left. There are also some areas suggestive of some egophony on the right side. ABDOMEN: Soft, nontender, no hepatosplenomegaly. EXTREMITIES: No cyanosis, clubbing or edema. Results/Medications Result Diagram: 01/12/1731 01/12/1731 Results 24 hrs Laboratory Tests Test 01/12/17 08:31 White Blood Count 11.9 #H Red Blood Count 3.31 L Hemoglobin 10.4 L Hematocrit 30.9 L Mean Corpuscular Volume 93.4 Mean Corpuscular Hemoglobin 31.4 Mean Corpuscular Hemoglobin Concent 33.7 Red Cell Distribution Width 13.3 Platelet Count 250 # Mean Platelet Volume 9.2 Neutrophils % Segmented Neutrophils % (Manual) 71 Band Neutrophils % (Manual) 5 H Lymphocytes % Lymphocytes % (Manual) 12 L Monocytes % Monocytes % (Manual) 6 Eosinophils % Basophils % Metamyelocytes % (manual) 1 H Myelocytes % (Manual) 4 H Promyelocytes % (Manual) 1 H Nucleated Red Blood Cells % 0.0 Neutrophils # Neutrophils # (Manual) 8.5 H Band Neutrophils # 0.5 Absolute Lymphocytes (Manual) 1.4 Lymphocytes # Monocytes # Absolute Monocytes (Manual) 0.7 Eosinophils # Basophils # Metamyelocytes # 0.1 H Myelocytes # 0.4 H Promyelocytes # 0.1 H Nucleated Red Blood Cells # Platelet Estimate NORMAL Anisocytosis 1+ Microcytosis 1+ Sodium Level 143 Potassium Level 4.3 Chloride Level 110 Carbon Dioxide Level 24 Anion Gap 13 Blood Urea Nitrogen 19 Creatinine 0.73 Glucose Level 83 # Calcium Level 8.8 Phosphorus Level 3.1 Magnesium Level 1.8 Albumin 3.2 L Medications Current Medications Fluticasone Propionate (Flonase 0.05% Nasal) 1 spray DAILY NASAL Last administered on 01/12/17 09:11; Admin Dose 1 SPRAY; Start 01/10/17 at 17:00 Lorazepam (Ativan) 0.25 mg TID PRN PO ANXIETY Last administered on 01/11/17 23:24; Admin Dose 0.25 MG; Start 01/10/17 at 16:00 Salmeterol Xinafoate/ Fluticasone (Advair 250/50 Diskus) 1 inh BID INH Last administered on 01/12/17 09:11; Admin Dose 1 INH; Start 01/10/17 at 17:00 Sertraline HCl (Zoloft) 250 mg QHS PO Last administered on 01/11/17 20:54; Admin Dose 250 MG; Start 01/10/17 at 21:00 Trazodone HCl (Desyrel) 300 mg QHS PO Last administered on 01/11/17 20:53; Admin Dose 300 MG; Start 01/10/17 at 21:00 Ondansetron HCl (Zofran Inj) 4 mg Q6H PRN IV NAUSEA AND/OR VOMITING; Start at 16:00 Acetaminophen (Tylenol Tab) 650 mg Q6H PRN PO PAIN LEVEL 1-3 OR FEVER Last administered on 01/10/17 16:54; Admin Dose 650 MG; Start 01/10/17 at 16:00 Docusate Sodium (Colace) 100 mg Q12H PRN PO CONSTIPATION; Start 01/10/17 at 16 :00 Magnesium Hydroxide (Milk Of Mag) 30 ml DAILY PRN PO CONSTIPATION; Start 01/10 at 16:00 Pantoprazole (Protonix Tab) 40 mg DAILY@06 PO Last administered on 01/12/17 06:48; Admin Dose 40 MG; Start 01/10/17 at 17:00 Enoxaparin Sodium 40 mg 40 mg Q24H SC Last administered on 01/11/17 17:14; Admin Dose 40 MG; Start 01/10/17 at 17:00 Azithromycin (Zithromax 500mg/ NS (Pmx)) 250 ml @ 250 mls/hr Q24H IVPB Last administered on 01/12/17 12:12; Admin Dose 250 MLS/HR; Start 01/11/17 at 13: 00 Loratadine/ Pseudoephedrine Sulfate (Claritin-D 12 Hr) 1 tab Q12 PO Last administered on 01/12/17 09:11; Admin Dose 1 TAB; Start 01/11/17 at 12:30; Stop 01/16/17 at 12:29 Guaifenesin/ Dextromethorphan (Mucinex Dm) 1 tab BID PO Last administered on 09:10; Admin Dose 1 TAB; Start 01/11/17 at 12:30 Methylprednisolone Sodium Succinate (Solu-Medrol) 40 mg Q12 IV Last administered on 01/12/17 09:10; Admin Dose 40 MG; Start 01/11/17 at 21:00 Polyethylene Glycol (Miralax) 17 gm DAILY PRN PO constipation; Start 01/12/17 at 13:00 Assessment/Plan Additional Assessment/Plan IMPRESSION: Acute asthma exacerbation, possibly induced by a viral or atypical bacterial tracheobronchitis/infectious bronchiolitis RECOMMENDATIONS: 1. Bronchodilators q.4 hours with albuterol and Atrovent. 2. De-escalate abx to levaquin 3. Systemic corticosteroids KAITLIN SANABRIA MD Jan 12, 2017 15:30
[2017-01-12] MEDS: LEVOFLOXACIN 750MG/D5W (PMX) 150 ML IVPB SCH (16:52)
[2017-01-12] MEDS: ENOXAPARIN 40 MG/0.4 ML SYG SC SCH (16:56)
[2017-01-12] MEDS: traZODone 100 MG TAB PO SCH (20:26)
[2017-01-12] MEDS: SERTRALINE 100 MG TAB PO SCH (20:27)
[2017-01-13] VITALS (11 sets, daily range): BP systolic 118–138; BP diastolic 62–77; PULSE 67–92; RESP 18–79
[2017-01-13] MEDS: PANTOPRAZOLE (EC) 40 MG TAB PO SCH (06:20)
[2017-01-13] MEDS: LEVOTHYROXINE 75 MCG TAB PO SCH (06:20)
[2017-01-13 07:57] LABS: ABNORMAL IP MESSAGE 1; HEMATOCRIT 32.4 % (37.0-47.0); HEMOGLOBIN 10.8 g/dl (12.0-16.0); MEAN CORPUSCULAR HEMOGLOBIN 31.2 pg (29.0-33.0); MEAN CORPUSCULAR HGB CONC 33.3 g/dl (32.0-37.0); MEAN CORPUSCULAR VOLUME 93.6 fl (82.0-101.0); MEAN PLATELET VOLUME 9.1 fl (7.4-10.4); PLATELET COUNT 253 10^3/UL (140-415); RED BLOOD COUNT 3.46 10^6/ul (4.20-5.40); RED CELL DISTRIBUTION WIDTH 13.4 % (11.5-14.5); WHITE BLOOD COUNT 11.8 10^3/ul (4.8-10.8)
[2017-01-13 08:13] LABS: ALBUMIN 3.1 g/dl (3.3-4.9); CREATININE 0.82 mg/dl (0.44-1.00); MAGNESIUM 1.7 mg/dl (1.7-2.5); PHOSPHORUS 3.8 mg/dl (2.5-4.9); POSITIVE DIFF @See below; POTASSIUM 4.4 mmol/L (3.5-5.1)
[2017-01-13] MEDS: ALBUTEROL 0.083% (NEB) 2.5 MG/3 ML AMP HHN SCH ×4 (09:00→20:28)
[2017-01-13] MEDS: FLUTICASONE 0.05% 16 GM NAS SPRAY NASAL SCH (09:00)
[2017-01-13] MEDS: LORATADINE/PSEUDOEPHED (SR) TAB PO SCH (09:12)
[2017-01-13] MEDS: METHYLPREDNISOLONE 40 MG INJ IV SCH ×2 (09:12→17:00)
[2017-01-13] MEDS: GUAIFENESIN/DM (SR) TAB PO SCH ×2 (09:12→21:01)
[2017-01-13] MEDS: SALMETEROL/FLUTICASONE 250/50 INHA INH SCH ×2 (09:12→21:01)
[2017-01-13 09:45] LABS: ANISOCYTOSIS 2+ (0-0); BASOPHILS % (M) 1 % (0-2); GIANT THROMBO% (M) 1 % (0-0); METAMYELOCYTES %M 1 % (0-0); MICROCYTOSIS 2+ (0-0); MONOCYTES % (M) 5 % (0-11); MYELOCYTES % (M) 7 % (0-0); PLATELET ESTIMATE NORMAL; POIKILOCYTOSIS 1+ (0-0); POLYCHROMASIA 3+ (0-0); PROMYELOCYTES #M 0.5 10^3/ul (0-0); PROMYELOCYTES % (M) 5 % (0-0)
--- NOTE | 2017-01-13 13:35 | PN ---
Date/Time of Note Date/Time of Note DATE: 01/13/17 TIME: 13:24 Assessment/Plan VTE Prophylaxis VTE Prophylaxis Intervention: LMWH Lines/Catheters IV Catheter Type (from [facility]): Saline Lock Urinary Cath still in place: No (NO F/C) Assessment/Plan Assessment/Plan 1. Community acquired pneumonia, bilateral pulmonary infiltrates on CT scan, on levaquin 2. Acute respiratory failure with hypoxia secondary to asthma exacerbation and pneumonia, O2 3. Asthma acute exacerbation, on neb/levaquin/steroid, decrease soluMedrol 4. Major depression and anxiety disorder, continue home medications 5. DVT prophylaxis: lovenox Subjective 24 Hr Interval Summary Free Text/Dictation feels better Exam/Review of Systems Vital Signs Vitals Vital Signs Date Time Temp Pulse Resp B/P Pulse Ox O2 Delivery O2 Flow Rate FiO2 01/13/17 13:07 72 20 94 Nasal Cannula 3.0 01/13/17 11:35 99.2 138/65 01/11/17 08:30 21 Intake and Output 01/12/17 01/12/17 01/13/17 15:00 23:00 07:00 Intake Total 700 ml Output Total 1000 ml Balance -300 ml Exam Constitutional: alert, oriented, well developed Psych: nl mood/affect, no complaints Head: atraumatic, normocephalic Eyes: EOMI, nl conjunctiva, nl lids ENMT: nl external ears & nose, nl lips & teeth, nl nasal mucosa & septum Neck: non-tender, supple Respiratory: clear to auscultation, normal air movement, No congested cough, No crackles/rales, No diminished breath sounds, No intercostal retraction, No labored breathing, No other, No respirations, No tactile fremitus, No wheezing Cardiovascular: nl pulses, regular rate and rhythm, No S3, No S4, No bruits, No diastolic murmur, No edema, No gallop, No irregular rhythm, No jugular venous distention (JVD), No murmurs/extra sounds, No other, No rub, No systolic murmur Gastrointestinal: nl liver, spleen, non-tender, soft, No ascites, No bowel sounds, No distended, No firm, No hepatomegaly, No mass , No other, No rebound or guarding, No splenomegaly, No surgical scars, No tender Musculoskeletal: nl extremities to inspection Extremities: normal pulses, No calf tenderness, No clubbing, No cyanosis, No edema, No other, No palpable cord, No pitting pedal edema, No tenderness Neurological: BOSS DYER II-XII intact, nl mental status, nl speech, nl strength Skin: nl turgor Lymph: nl lymph nodes Results Result Diagram: 01/13/17 0643 01/13/17 0643 Results 24 hrs Laboratory Tests Test 01/13/17 06:43 White Blood Count 11.8 H Red Blood Count 3.46 L Hemoglobin 10.8 L Hematocrit 32.4 L Mean Corpuscular Volume 93.6 Mean Corpuscular Hemoglobin 31.2 Mean Corpuscular Hemoglobin Concent 33.3 Red Cell Distribution Width 13.4 Platelet Count 253 Mean Platelet Volume 9.1 Neutrophils % Segmented Neutrophils % (Manual) 66 Band Neutrophils % (Manual) 1 Lymphocytes % Lymphocytes % (Manual) 14 L Monocytes % Monocytes % (Manual) 5 Eosinophils % Basophils % Basophils % (Manual) 1 Metamyelocytes % (manual) 1 H Myelocytes % (Manual) 7 H Promyelocytes % (Manual) 5 H Nucleated Red Blood Cells % 0.0 Neutrophils # Neutrophils # (Manual) 7.8 H Band Neutrophils # 0.1 Absolute Lymphocytes (Manual) 1.6 Lymphocytes # Monocytes # Absolute Monocytes (Manual) 0.5 Eosinophils # Basophils # Basophils # (Manual) 0.1 H Metamyelocytes # 0.1 H Myelocytes # 0.8 H Promyelocytes # 0.5 H Nucleated Red Blood Cells # Platelet Estimate NORMAL Giant Platelets 1 H Polychromasia 3+ Poikilocytosis 1+ Anisocytosis 2+ Microcytosis 2+ Sodium Level 142 Potassium Level 4.4 Chloride Level 107 Carbon Dioxide Level 27 Anion Gap 12 Blood Urea Nitrogen 22 H Creatinine 0.82 Glucose Level 86 Calcium Level 9.0 Phosphorus Level 3.8 Magnesium Level 1.7 Albumin 3.1 L Medications Medications Current Medications Fluticasone Propionate (Flonase 0.05% Nasal) 1 spray DAILY NASAL Last administered on 01/12/17 09:11; Admin Dose 1 SPRAY; Start 01/10/17 at 17:00 Lorazepam (Ativan) 0.25 mg TID PRN PO ANXIETY Last administered on 01/11/17 23:24; Admin Dose 0.25 MG; Start 01/10/17 at 16:00 Salmeterol Xinafoate/ Fluticasone (Advair 250/50 Diskus) 1 inh BID INH Last administered on 01/13/17 09:12; Admin Dose 1 INH; Start 01/10/17 at 17:00 Sertraline HCl (Zoloft) 250 mg QHS PO Last administered on 01/12/17 20:27; Admin Dose 250 MG; Start 01/10/17 at 21:00 Trazodone HCl (Desyrel) 300 mg QHS PO Last administered on 01/12/17 20:26; Admin Dose 300 MG; Start 01/10/17 at 21:00 Ondansetron HCl (Zofran Inj) 4 mg Q6H PRN IV NAUSEA AND/OR VOMITING; Start at 16:00 Acetaminophen (Tylenol Tab) 650 mg Q6H PRN PO PAIN LEVEL 1-3 OR FEVER Last administered on 01/10/17 16:54; Admin Dose 650 MG; Start 01/10/17 at 16:00 Docusate Sodium (Colace) 100 mg Q12H PRN PO CONSTIPATION; Start 01/10/17 at 16 :00 Magnesium Hydroxide (Milk Of Mag) 30 ml DAILY PRN PO CONSTIPATION; Start 01/10 at 16:00 Pantoprazole (Protonix Tab) 40 mg DAILY@06 PO Last administered on 01/13/17 06:20; Admin Dose 40 MG; Start 01/10/17 at 17:00 Enoxaparin Sodium (Lovenox) 40 mg Q24H SC Last administered on 01/12/17 16:56 ; Admin Dose 40 MG; Start 01/10/17 at 17:00 Loratadine/ Pseudoephedrine Sulfate (Claritin-D 12 Hr) 1 tab Q12 PO Last administered on 01/13/17 09:12; Admin Dose 1 TAB; Start 01/11/17 at 12:30; Stop 01/16/17 at 12:29 Guaifenesin/ Dextromethorphan (Mucinex Dm) 1 tab BID PO Last administered on 09:12; Admin Dose 1 TAB; Start 01/11/17 at 12:30 Methylprednisolone Sodium Succinate (Solu-Medrol) 40 mg Q12 IV Last administered on 01/13/17 09:12; Admin Dose 40 MG; Start 01/11/17 at 21:00 Polyethylene Glycol 17 gm 17 gm DAILY PRN PO constipation Last administered on 01/12/17 20:26; Admin Dose 17 GM; Start 01/12/17 at 13:00 Levofloxacin/ Dextrose (Levaquin 750 Mg/ D5W 150 ml (Pmx)) 150 ml @ 100 mls/hr Q24H IVPB Last administered on 01/12/17 16:52; Admin Dose 100 MLS/HR; Start 01/12/17 at 16:15 RONNY HINTON MD Jan 13, 2017 13:34
--- NOTE | 2017-01-13 14:37 | CONS ---
Date/Time of Note Date/Time of Note DATE: 01/13/17 TIME: 14:36 Consult Date/Type/Reason Admit Date/Time Jan 10, 2017 at 14:50 Initial Consult Date Type of Consultation: Pulm Subjective Still has desaturation on exertion. Objective Vital Signs Date Time Temp Pulse Resp B/P Pulse Ox O2 Delivery O2 Flow Rate FiO2 01/13/17 13:07 72 20 94 Nasal Cannula 3.0 01/13/17 11:35 99.2 138/65 01/11/17 08:30 21 Intake and Output 01/12/17 01/12/17 01/13/17 14:59 22:59 06:59 Intake Total 700 ml Output Total 1000 ml Balance -300 ml Exam GENERAL: VITAL SIGNS: per chart NECK: Supple. No JVD or lymphadenopathy. CARDIAC EXAM: S1, S2. No added sounds or murmurs. CHEST: Diminished air entry bilaterally with expiratory wheezing ABDOMEN: Soft, nontender. No guarding or rebound. EXTREMITIES: No cyanosis, clubbing or edema. NEUROLOGIC: Generalized weakness. No focal deficits. Results/Medications Result Diagram: 01/13/17 0643 01/13/17 0643 Results 24 hrs Laboratory Tests Test 01/13/17 06:43 White Blood Count 11.8 H Red Blood Count 3.46 L Hemoglobin 10.8 L Hematocrit 32.4 L Mean Corpuscular Volume 93.6 Mean Corpuscular Hemoglobin 31.2 Mean Corpuscular Hemoglobin Concent 33.3 Red Cell Distribution Width 13.4 Platelet Count 253 Mean Platelet Volume 9.1 Neutrophils % Segmented Neutrophils % (Manual) 66 Band Neutrophils % (Manual) 1 Lymphocytes % Lymphocytes % (Manual) 14 L Monocytes % Monocytes % (Manual) 5 Eosinophils % Basophils % Basophils % (Manual) 1 Metamyelocytes % (manual) 1 H Myelocytes % (Manual) 7 H Promyelocytes % (Manual) 5 H Nucleated Red Blood Cells % 0.0 Neutrophils # Neutrophils # (Manual) 7.8 H Band Neutrophils # 0.1 Absolute Lymphocytes (Manual) 1.6 Lymphocytes # Monocytes # Absolute Monocytes (Manual) 0.5 Eosinophils # Basophils # Basophils # (Manual) 0.1 H Metamyelocytes # 0.1 H Myelocytes # 0.8 H Promyelocytes # 0.5 H Nucleated Red Blood Cells # Platelet Estimate NORMAL Giant Platelets 1 H Polychromasia 3+ Poikilocytosis 1+ Anisocytosis 2+ Microcytosis 2+ Sodium Level 142 Potassium Level 4.4 Chloride Level 107 Carbon Dioxide Level 27 Anion Gap 12 Blood Urea Nitrogen 22 H Creatinine 0.82 Glucose Level 86 Calcium Level 9.0 Phosphorus Level 3.8 Magnesium Level 1.7 Albumin 3.1 L Medications Current Medications Fluticasone Propionate (Flonase 0.05% Nasal) 1 spray DAILY NASAL Last administered on 01/12/17 09:11; Admin Dose 1 SPRAY; Start 01/10/17 at 17:00 Lorazepam (Ativan) 0.25 mg TID PRN PO ANXIETY Last administered on 01/11/17 23:24; Admin Dose 0.25 MG; Start 01/10/17 at 16:00 Salmeterol Xinafoate/ Fluticasone (Advair 250/50 Diskus) 1 inh BID INH Last administered on 01/13/17 09:12; Admin Dose 1 INH; Start 01/10/17 at 17:00 Sertraline HCl (Zoloft) 250 mg QHS PO Last administered on 01/12/17 20:27; Admin Dose 250 MG; Start 01/10/17 at 21:00 Trazodone HCl (Desyrel) 300 mg QHS PO Last administered on 01/12/17 20:26; Admin Dose 300 MG; Start 01/10/17 at 21:00 Ondansetron HCl (Zofran Inj) 4 mg Q6H PRN IV NAUSEA AND/OR VOMITING; Start at 16:00 Acetaminophen (Tylenol Tab) 650 mg Q6H PRN PO PAIN LEVEL 1-3 OR FEVER Last administered on 01/10/17 16:54; Admin Dose 650 MG; Start 01/10/17 at 16:00 Docusate Sodium (Colace) 100 mg Q12H PRN PO CONSTIPATION; Start 01/10/17 at 16 :00 Magnesium Hydroxide (Milk Of Mag) 30 ml DAILY PRN PO CONSTIPATION; Start 01/10 at 16:00 Pantoprazole (Protonix Tab) 40 mg DAILY@06 PO Last administered on 01/13/17 06:20; Admin Dose 40 MG; Start 01/10/17 at 17:00 Enoxaparin Sodium (Lovenox) 40 mg Q24H SC Last administered on 01/12/17 16:56 ; Admin Dose 40 MG; Start 01/10/17 at 17:00 Loratadine/ Pseudoephedrine Sulfate (Claritin-D 12 Hr) 1 tab Q12 PO Last administered on 01/13/17 09:12; Admin Dose 1 TAB; Start 01/11/17 at 12:30; Stop 01/16/17 at 12:29 Guaifenesin/ Dextromethorphan (Mucinex Dm) 1 tab BID PO Last administered on 09:12; Admin Dose 1 TAB; Start 01/11/17 at 12:30 Polyethylene Glycol 17 gm 17 gm DAILY PRN PO constipation Last administered on 01/12/17 20:26; Admin Dose 17 GM; Start 01/12/17 at 13:00 Levofloxacin/ Dextrose (Levaquin 750 Mg/ D5W 150 ml (Pmx)) 150 ml @ 100 mls/hr Q24H IVPB Last administered on 01/12/17 16:52; Admin Dose 100 MLS/HR; Start 01/12/17 at 16:15 Methylprednisolone Sodium Succinate (Solu-Medrol) 20 mg Q8H IV ; Start at 17:00 Assessment/Plan Chief Complaint/Hosp Course Additional Assessment/Plan IMPRESSION: Acute asthma exacerbation, possibly induced by a viral or atypical bacterial tracheobronchitis/infectious bronchiolitis RECOMMENDATIONS: 1. Bronchodilators q.4 hours with albuterol and Atrovent. 2. De-escalate abx to levaquin 3. Systemic corticosteroids Anticipate discharge next 1-2 days Problems: CRYSTAL NOLAN MD, [facility] Jan 13, 2017 14:37
[2017-01-13] MEDS: LEVOFLOXACIN 750MG/D5W (PMX) 150 ML IVPB SCH (16:25)
[2017-01-13] MEDS: ENOXAPARIN 40 MG/0.4 ML SYG SC SCH (18:43)
[2017-01-13] MEDS: traZODone 100 MG TAB PO SCH (21:01)
[2017-01-13] MEDS: SERTRALINE 100 MG TAB PO SCH (21:02)
[2017-01-13] MEDS: LORAZEPAM 0.5 MG TAB PO PRN (21:11)
[2017-01-14] VITALS (12 sets, daily range): BP systolic 104–138; BP diastolic 59–77; PULSE 63–89; RESP 16–18
[2017-01-14] MEDS: LORATADINE/PSEUDOEPHED (SR) TAB PO SCH ×3 (00:07→21:05)
[2017-01-14] MEDS: METHYLPREDNISOLONE 40 MG INJ IV SCH ×3 (00:08→17:40)
[2017-01-14] MEDS: PANTOPRAZOLE (EC) 40 MG TAB PO SCH (06:14)
[2017-01-14] MEDS: LEVOTHYROXINE 75 MCG TAB PO SCH (06:14)
[2017-01-14] MEDS: FLUTICASONE 0.05% 16 GM NAS SPRAY NASAL SCH (09:00)
[2017-01-14] MEDS: LORAZEPAM 0.5 MG TAB PO PRN ×3 (09:03→21:06)
[2017-01-14] MEDS: ALBUTEROL 0.083% (NEB) 2.5 MG/3 ML AMP HHN SCH ×4 (09:04→20:16)
[2017-01-14] MEDS: SALMETEROL/FLUTICASONE 250/50 INHA INH SCH ×2 (09:05→21:07)
[2017-01-14] MEDS: GUAIFENESIN/DM (SR) TAB PO SCH ×2 (09:05→21:06)
--- NOTE | 2017-01-14 12:22 | PN ---
Date/Time of Note Date/Time of Note DATE: 01/14/17 TIME: 12:18 Assessment/Plan VTE Prophylaxis VTE Prophylaxis Intervention: LMWH Lines/Catheters IV [facility] (from [facility] Saline Lock Urinary Cath still in place: No Assessment/Plan Assessment/Plan 1. Community acquired pneumonia, bilateral pulmonary infiltrates on CT scan, improving on levaquin 2. Acute respiratory failure with hypoxia secondary to asthma exacerbation and pneumonia, O2 3. Asthma acute exacerbation, on neb/levaquin/steroid, decrease soluMedrol 4. Major depression and anxiety disorder, continue home medications 5. DVT prophylaxis: lovenox Subjective 24 Hr Interval Summary Free Text/Dictation feels better Exam/Review of Systems Vital Signs Vitals Vital Signs Date Time Temp Pulse Resp B/P Pulse Ox O2 Delivery O2 Flow Rate FiO2 01/14/17 12:07 99.8 85 18 138/64 90 01/14/17 09:05 Nasal Cannula 3.0 01/11/17 08:30 21 Intake and Output 01/13/17 01/13/17 01/14/17 15:00 23:00 07:00 Intake Total 750 ml 250 ml Balance 750 ml 250 ml Exam Constitutional: alert, oriented, well developed Psych: nl mood/affect, no complaints Head: atraumatic, normocephalic Eyes: EOMI, nl conjunctiva, nl lids ENMT: nl external ears & nose, nl lips & teeth, nl nasal mucosa & septum Neck: non-tender, supple Respiratory: other (some rhonchi) Cardiovascular: nl pulses, regular rate and rhythm, No S3, No S4, No bruits, No diastolic murmur, No edema, No gallop, No irregular rhythm, No jugular venous distention (JVD), No murmurs/extra sounds, No other, No rub, No systolic murmur Gastrointestinal: nl liver, spleen, non-tender, soft, No ascites, No bowel sounds, No distended, No firm, No hepatomegaly, No mass , No other, No rebound or guarding, No splenomegaly, No surgical scars, No tender Musculoskeletal: nl extremities to inspection Extremities: normal pulses, No calf tenderness, No clubbing, No cyanosis, No edema, No other, No palpable cord, No pitting pedal edema, No tenderness Neurological: HRIS ADMINISTRATOR II-XII intact, nl mental status, nl speech, nl strength Skin: nl turgor Results Result Diagram: 01/13/1743 01/13/17 0643 Medications Medications Current Medications Fluticasone Propionate (Flonase 0.05% Nasal) 1 spray DAILY NASAL Last administered on 01/12/17 09:11; Admin Dose 1 SPRAY; Start 01/10/17 at 17:00 Lorazepam (Ativan) 0.25 mg TID PRN PO ANXIETY Last administered on 01/14/17 09:03; Admin Dose 0.25 MG; Start 01/10/17 at 16:00 Salmeterol Xinafoate/ Fluticasone (Advair 250/50 Diskus) 1 inh BID INH Last administered on 01/14/17 09:05; Admin Dose 1 INH; Start 01/10/17 at 17:00 Sertraline HCl (Zoloft) 250 mg QHS PO Last administered on 01/13/17 21:02; Admin Dose 250 MG; Start 01/10/17 at 21:00 Trazodone HCl (Desyrel) 300 mg QHS PO Last administered on 01/13/17 21:01; Admin Dose 300 MG; Start 01/10/17 at 21:00 Ondansetron HCl (Zofran Inj) 4 mg Q6H PRN IV NAUSEA AND/OR VOMITING; Start at 16:00 Acetaminophen (Tylenol Tab) 650 mg Q6H PRN PO PAIN LEVEL 1-3 OR FEVER Last administered on 01/10/17 16:54; Admin Dose 650 MG; Start 01/10/17 at 16:00 Docusate Sodium (Colace) 100 mg Q12H PRN PO CONSTIPATION; Start 01/10/17 at 16 :00 Magnesium Hydroxide (Milk Of Mag) 30 ml DAILY PRN PO CONSTIPATION; Start 01/10 at 16:00 Pantoprazole (Protonix Tab) 40 mg DAILY@06 PO Last administered on 01/14/17 06:14; Admin Dose 40 MG; Start 01/10/17 at 17:00 Enoxaparin Sodium (Lovenox) 40 mg Q24H SC Last administered on 01/13/17 18:43 ; Admin Dose 40 MG; Start 01/10/17 at 17:00 Loratadine/ Pseudoephedrine Sulfate (Claritin-D 12 Hr) 1 tab Q12 PO Last administered on 01/14/17 00:07; Admin Dose 1 TAB; Start 01/11/17 at 12:30; Stop 01/16/17 at 12:29 Guaifenesin/ Dextromethorphan (Mucinex Dm) 1 tab BID PO Last administered on 09:05; Admin Dose 1 TAB; Start 01/11/17 at 12:30 Polyethylene Glycol 17 gm 17 gm DAILY PRN PO constipation Last administered on 01/12/17 20:26; Admin Dose 17 GM; Start 01/12/17 at 13:00 Levofloxacin/ Dextrose (Levaquin 750 Mg/ D5W 150 ml (Pmx)) 150 ml @ 100 mls/hr Q24H IVPB Last administered on 01/13/17 16:25; Admin Dose 100 MLS/HR; Start 01/12/17 at 16:15 Methylprednisolone Sodium Succinate (Solu-Medrol) 20 mg Q8H IV Last administered on 01/14/17 09:05; Admin Dose 20 MG; Start 01/13/17 at 17:00 RONNY HINTON MD Jan 14, 2017 12:22
--- NOTE | 2017-01-14 14:47 | CONS ---
Date/Time of Note Date/Time of Note DATE: 01/14/17 TIME: 14:46 Consult Date/Type/Reason Admit Date/Time Jan 10, 2017 at 14:50 Type of Consultation: Pulm Subjective Patient remains comfortable no new events. Breathing has improved. Objective Vital Signs Date Time Temp Pulse Resp B/P Pulse Ox O2 Delivery O2 Flow Rate FiO2 01/14/17 13:55 83 18 97 Nasal Cannula 3.0 01/14/17 12:07 99.8 138/64 01/11/17 08:30 21 Intake and Output 01/13/17 01/13/17 01/14/17 15:00 23:00 07:00 Intake Total 750 ml 250 ml Balance 750 ml 250 ml Exam GENERAL: Well-nourished well-developed lady comfortable at rest no acute distress VITAL SIGNS: per chart NECK: Supple. No JVD or lymphadenopathy. CARDIAC EXAM: S1, S2. No added sounds or murmurs. CHEST: clear bilaterally, No added sounds, rales or wheezes ABDOMEN: Soft, nontender. No guarding or rebound. EXTREMITIES: No cyanosis, clubbing or edema. NEUROLOGIC: Generalized weakness. No focal deficits. Results/Medications Result Diagram: 01/13/1743 01/13/1743 Medications Current Medications Fluticasone Propionate (Flonase 0.05% Nasal) 1 spray DAILY NASAL Last administered on 01/12/17 09:11; Admin Dose 1 SPRAY; Start 01/10/17 at 17:00 Lorazepam (Ativan) 0.25 mg TID PRN PO ANXIETY Last administered on 01/14/17 09:03; Admin Dose 0.25 MG; Start 01/10/17 at 16:00 Salmeterol Xinafoate/ Fluticasone (Advair 250/50 Diskus) 1 inh BID INH Last administered on 01/14/17 09:05; Admin Dose 1 INH; Start 01/10/17 at 17:00 Sertraline HCl (Zoloft) 250 mg QHS PO Last administered on 01/13/17 21:02; Admin Dose 250 MG; Start 01/10/17 at 21:00 Trazodone HCl (Desyrel) 300 mg QHS PO Last administered on 01/13/17 21:01; Admin Dose 300 MG; Start 01/10/17 at 21:00 Ondansetron HCl (Zofran Inj) 4 mg Q6H PRN IV NAUSEA AND/OR VOMITING; Start at 16:00 Acetaminophen (Tylenol Tab) 650 mg Q6H PRN PO PAIN LEVEL 1-3 OR FEVER Last administered on 01/10/17 16:54; Admin Dose 650 MG; Start 01/10/17 at 16:00 Docusate Sodium (Colace) 100 mg Q12H PRN PO CONSTIPATION; Start 01/10/17 at 16 :00 Magnesium Hydroxide (Milk Of Mag) 30 ml DAILY PRN PO CONSTIPATION; Start 01/10 at 16:00 Pantoprazole (Protonix Tab) 40 mg DAILY@06 PO Last administered on 01/14/17 06:14; Admin Dose 40 MG; Start 01/10/17 at 17:00 Enoxaparin Sodium (Lovenox) 40 mg Q24H SC Last administered on 01/13/17 18:43 ; Admin Dose 40 MG; Start 01/10/17 at 17:00 Loratadine/ Pseudoephedrine Sulfate (Claritin-D 12 Hr) 1 tab Q12 PO Last administered on 01/14/17 00:07; Admin Dose 1 TAB; Start 01/11/17 at 12:30; Stop 01/16/17 at 12:29 Guaifenesin/ Dextromethorphan (Mucinex Dm) 1 tab BID PO Last administered on 09:05; Admin Dose 1 TAB; Start 01/11/17 at 12:30 Polyethylene Glycol 17 gm 17 gm DAILY PRN PO constipation Last administered on 01/12/17 20:26; Admin Dose 17 GM; Start 01/12/17 at 13:00 Levofloxacin/ Dextrose (Levaquin 750 Mg/ D5W 150 ml (Pmx)) 150 ml @ 100 mls/hr Q24H IVPB Last administered on 01/13/17 16:25; Admin Dose 100 MLS/HR; Start 01/12/17 at 16:15 Methylprednisolone Sodium Succinate (Solu-Medrol) 20 mg Q8H IV Last administered on 01/14/17 09:05; Admin Dose 20 MG; Start 01/13/17 at 17:00 Assessment/Plan Chief Complaint/Hosp Course Additional Assessment/Plan IMPRESSION: Acute asthma exacerbation, possibly induced by a viral or atypical bacterial tracheobronchitis/infectious bronchiolitis RECOMMENDATIONS: 1. Bronchodilators q.4 hours with albuterol and Atrovent. 2. De-escalate abx to levaquin 3. Systemic corticosteroids Clinically improved discharge okay from primary standpoint Problems: CRYSTAL NOLAN MD, [facility] Jan 14, 2017 14:47
[2017-01-14] MEDS: LEVOFLOXACIN 750MG/D5W (PMX) 150 ML IVPB SCH (16:30)
[2017-01-14] MEDS: ENOXAPARIN 40 MG/0.4 ML SYG SC SCH (17:47)
[2017-01-14] MEDS: SERTRALINE 100 MG TAB PO SCH (21:06)
[2017-01-14] MEDS: traZODone 100 MG TAB PO SCH (21:06)
[2017-01-15] VITALS (12 sets, daily range): BP systolic 100–134; BP diastolic 52–74; PULSE 60–85; RESP 17–19
[2017-01-15] MEDS: METHYLPREDNISOLONE 40 MG INJ IV SCH ×3 (01:57→16:52)
[2017-01-15] MEDS: LEVOTHYROXINE 75 MCG TAB PO SCH (06:37)
[2017-01-15] MEDS: PANTOPRAZOLE (EC) 40 MG TAB PO SCH (06:37)
[2017-01-15] MEDS: ALBUTEROL 0.083% (NEB) 2.5 MG/3 ML AMP HHN SCH ×4 (08:17→21:04)
[2017-01-15] MEDS: FLUTICASONE 0.05% 16 GM NAS SPRAY NASAL SCH (09:00)
[2017-01-15] MEDS: LORATADINE/PSEUDOEPHED (SR) TAB PO SCH ×2 (09:30→20:48)
[2017-01-15] MEDS: SALMETEROL/FLUTICASONE 250/50 INHA INH SCH ×2 (09:31→20:47)
[2017-01-15] MEDS: LORAZEPAM 0.5 MG TAB PO PRN ×3 (09:53→20:47)
[2017-01-15] MEDS: GUAIFENESIN/DM (SR) TAB PO SCH ×2 (11:04→21:33)
--- NOTE | 2017-01-15 13:02 | CONS ---
Date/Time of Note Date/Time of Note DATE: 01/15/17 TIME: 13:00 Assessment/Plan Assessment/Plan Additional Assessment/Plan Assessment and recommendations; 1. Patient admitted with asthma exacerbation and right lower lobe pneumonia with interval improvement. 2. History of depression. Continue current treatment. Obtain follow-up chest x-ray. Consultation Date/Type/Reason Admit Date/Time Jan 10, 2017 at 14:50 Initial Consult Date Type of Consultation: Pulm 24 HR Interval Summary Free Text/Dictation Patient's condition is stable. Still complains of chest congestion which she reports involving the right lung. Complains of scant cough. Denies any wheezing or sputum production. General exam; elderly woman, awake alert, currently in no distress. Exam/Review of Systems Vital Signs Vitals Vital Signs Date Time Temp Pulse Resp B/P Pulse Ox O2 Delivery O2 Flow Rate FiO2 01/15/17 12:13 85 01/15/17 11:35 98.6 17 114/65 91 01/15/17 09:27 Nasal Cannula 3.0 01/14/17 20:17 21 Intake and Output 01/14/17 01/14/17 01/15/17 15:00 23:00 07:00 Intake Total 600 ml 300 ml Balance 600 ml 300 ml Exam HEENT exam; supple neck, no JVD. No lymphadenopathy. Midline trachea. No thyromegaly. Pharynx is clear. Chest exam; diminished but clear breath sound. S1-S2 audible, no murmurs. Regular rhythm. Abdomen exam; soft, nontender. No organomegaly. Bowel sounds. extremity exam; no peripheral edema. No clubbing. [employer] exam; no focal deficit. Results Result Diagram: 01/13/17 0643 01/13/17 0643 Medications Medications Current Medications Fluticasone Propionate (Flonase 0.05% Nasal) 1 spray DAILY NASAL Last administered on 01/12/17 09:11; Admin Dose 1 SPRAY; Start 01/10/17 at 17:00 Lorazepam (Ativan) 0.25 mg TID PRN PO ANXIETY Last administered on 01/15/17 09:53; Admin Dose 0.25 MG; Start 01/10/17 at 16:00 Salmeterol Xinafoate/ Fluticasone (Advair 250/50 Diskus) 1 inh BID INH Last administered on 01/15/17 09:31; Admin Dose 1 INH; Start 01/10/17 at 17:00 Sertraline HCl (Zoloft) 250 mg QHS PO Last administered on 01/14/17 21:06; Admin Dose 250 MG; Start 01/10/17 at 21:00 Trazodone HCl (Desyrel) 300 mg QHS PO Last administered on 01/14/17 21:06; Admin Dose 300 MG; Start 01/10/17 at 21:00 Ondansetron HCl (Zofran Inj) 4 mg Q6H PRN IV NAUSEA AND/OR VOMITING; Start at 16:00 Acetaminophen (Tylenol Tab) 650 mg Q6H PRN PO PAIN LEVEL 1-3 OR FEVER Last administered on 01/10/17 16:54; Admin Dose 650 MG; Start 01/10/17 at 16:00 Docusate Sodium (Colace) 100 mg Q12H PRN PO CONSTIPATION; Start 01/10/17 at 16 :00 Magnesium Hydroxide (Milk Of Mag) 30 ml DAILY PRN PO CONSTIPATION; Start 01/10 at 16:00 Pantoprazole (Protonix Tab) 40 mg DAILY@06 PO Last administered on 01/15/17 06:37; Admin Dose 40 MG; Start 01/10/17 at 17:00 Enoxaparin Sodium (Lovenox) 40 mg Q24H SC Last administered on 01/14/17 17:47 ; Admin Dose 40 MG; Start 01/10/17 at 17:00 Loratadine/ Pseudoephedrine Sulfate (Claritin-D 12 Hr) 1 tab Q12 PO Last administered on 01/15/17 09:30; Admin Dose 1 TAB; Start 01/11/17 at 12:30; Stop 01/16/17 at 12:29 Guaifenesin/ Dextromethorphan (Mucinex Dm) 1 tab BID PO Last administered on 11:04; Admin Dose 1 TAB; Start 01/11/17 at 12:30 Polyethylene Glycol 17 gm 17 gm DAILY PRN PO constipation Last administered on 01/12/17 20:26; Admin Dose 17 GM; Start 01/12/17 at 13:00 Levofloxacin/ Dextrose (Levaquin 750 Mg/ D5W 150 ml (Pmx)) 150 ml @ 100 mls/hr Q24H IVPB Last administered on 01/14/17 16:30; Admin Dose 100 MLS/HR; Start 01/12/17 at 16:15 Methylprednisolone Sodium Succinate (Solu-Medrol) 20 mg Q8H IV Last administered on 01/15/17 09:30; Admin Dose 20 MG; Start 01/13/17 at 17:00 JACK FLORES Jan 15, 2017 13:02
--- NOTE | 2017-01-15 13:52 | PN ---
Date/Time of Note Date/Time of Note DATE: 01/15/17 TIME: 13:50 Assessment/Plan VTE Prophylaxis VTE Prophylaxis Intervention: LMWH Lines/Catheters IV [facility] Type (from [facility] Saline Lock Urinary Cath still in place: No Assessment/Plan Assessment/Plan 1. Community acquired pneumonia, bilateral pulmonary infiltrates on CT scan, improving on levaquin 2. Acute respiratory failure with hypoxia secondary to asthma exacerbation and pneumonia, O2 3. Asthma acute exacerbation, on neb/levaquin/steroid, decrease soluMedrol 4. Major depression and anxiety disorder, continue home medications 5. DVT prophylaxis: lovenox Subjective 24 Hr Interval Summary Free Text/Dictation less but still with shortness of breath. weak Exam/Review of Systems Vital Signs Vitals Vital Signs Date Time Temp Pulse Resp B/P Pulse Ox O2 Delivery O2 Flow Rate FiO2 01/15/17 13:38 97 18 96 Nasal Cannula 3.0 01/15/17 11:35 98.6 114/65 01/14/17 20:17 21 Intake and Output 01/14/17 01/14/17 01/15/17 15:00 23:00 07:00 Intake Total 600 ml 300 ml Balance 600 ml 300 ml Exam Constitutional: alert, oriented, well developed Psych: nl mood/affect, no complaints Head: atraumatic, normocephalic Eyes: EOMI, PERRL, nl conjunctiva, nl lids, nl sclera ENMT: nl external ears & nose, nl lips & teeth, nl nasal mucosa & septum Neck: non-tender, supple Respiratory: clear to auscultation, normal air movement, No congested cough, No crackles/rales, No diminished breath sounds, No intercostal retraction, No labored breathing, No other, No respirations, No tactile fremitus, No wheezing Cardiovascular: nl pulses, regular rate and rhythm, No S3, No S4, No bruits, No diastolic murmur, No edema, No gallop, No irregular rhythm, No jugular venous distention (JVD), No murmurs/extra sounds, No other, No rub, No systolic murmur Gastrointestinal: nl liver, spleen, non-tender, soft Musculoskeletal: nl extremities to inspection Extremities: normal pulses, No calf tenderness, No clubbing, No cyanosis, No edema, No other, No palpable cord, No pitting pedal edema, No tenderness Neurological: STOCK CUTTER II-XII intact, nl mental status, nl speech, nl strength Skin: nl turgor Lymph: nl lymph nodes Results Result Diagram: 01/13/1764201/13/17642 Medications Medications Current Medications Fluticasone Propionate (Flonase 0.05% Nasal) 1 spray DAILY NASAL Last administered on 01/12/17 09:11; Admin Dose 1 SPRAY; Start 01/10/17 at 17:00 Lorazepam (Ativan) 0.25 mg TID PRN PO ANXIETY Last administered on 01/15/17 09:53; Admin Dose 0.25 MG; Start 01/10/17 at 16:00 Salmeterol Xinafoate/ Fluticasone (Advair 250/50 Diskus) 1 inh BID INH Last administered on 01/15/17 09:31; Admin Dose 1 INH; Start 01/10/17 at 17:00 Sertraline HCl (Zoloft) 250 mg QHS PO Last administered on 01/14/17 21:06; Admin Dose 250 MG; Start 01/10/17 at 21:00 Trazodone HCl (Desyrel) 300 mg QHS PO Last administered on 01/14/17 21:06; Admin Dose 300 MG; Start 01/10/17 at 21:00 Ondansetron HCl (Zofran Inj) 4 mg Q6H PRN IV NAUSEA AND/OR VOMITING; Start at 16:00 Acetaminophen (Tylenol Tab) 650 mg Q6H PRN PO PAIN LEVEL 1-3 OR FEVER Last administered on 01/10/17 16:54; Admin Dose 650 MG; Start 01/10/17 at 16:00 Docusate Sodium (Colace) 100 mg Q12H PRN PO CONSTIPATION; Start 01/10/17 at 16 :00 Magnesium Hydroxide (Milk Of Mag) 30 ml DAILY PRN PO CONSTIPATION; Start 01/10 at 16:00 Pantoprazole (Protonix Tab) 40 mg DAILY@06 PO Last administered on 01/15/17 06:37; Admin Dose 40 MG; Start 01/10/17 at 17:00 Enoxaparin Sodium (Lovenox) 40 mg Q24H SC Last administered on 01/14/17 17:47 ; Admin Dose 40 MG; Start 01/10/17 at 17:00 Loratadine/ Pseudoephedrine Sulfate (Claritin-D 12 Hr) 1 tab Q12 PO Last administered on 01/15/17 09:30; Admin Dose 1 TAB; Start 01/11/17 at 12:30; Stop 01/16/17 at 12:29 Guaifenesin/ Dextromethorphan (Mucinex Dm) 1 tab BID PO Last administered on 11:04; Admin Dose 1 TAB; Start 01/11/17 at 12:30 Polyethylene Glycol 17 gm 17 gm DAILY PRN PO constipation Last administered on 01/12/17 20:26; Admin Dose 17 GM; Start 01/12/17 at 13:00 Levofloxacin/ Dextrose (Levaquin 750 Mg/ D5W 150 ml (Pmx)) 150 ml @ 100 mls/hr Q24H IVPB Last administered on 01/14/17 16:30; Admin Dose 100 MLS/HR; Start 01/12/17 at 16:15 Methylprednisolone Sodium Succinate (Solu-Medrol) 20 mg Q8H IV Last administered on 01/15/17 09:30; Admin Dose 20 MG; Start 01/13/17 at 17:00 RONNY HINTON MD Jan 15, 2017 13:52
[2017-01-15] MEDS: LEVOFLOXACIN 750MG/D5W (PMX) 150 ML IVPB SCH (16:33)
[2017-01-15] MEDS: ENOXAPARIN 40 MG/0.4 ML SYG SC SCH (16:53)
[2017-01-15 17:06] LABS: MYCOPLASMA PNEUMONIAE AB (IGG) 1.64
[2017-01-15] MEDS: SERTRALINE 100 MG TAB PO SCH (20:47)
[2017-01-15] MEDS: traZODone 100 MG TAB PO SCH (20:48)
[2017-01-16 00:43] VITALS: BP 110/65; RESP 17
[2017-01-16] MEDS: METHYLPREDNISOLONE 40 MG INJ IV SCH ×2 (01:19→08:47)
[2017-01-16 04:11] VITALS: BP 136/77; RESP 17
[2017-01-16] MEDS: LEVOTHYROXINE 75 MCG TAB PO SCH (06:22)
[2017-01-16] MEDS: PANTOPRAZOLE (EC) 40 MG TAB PO SCH (06:22)
[2017-01-16 08:00] VITALS: BP 120/71; RESP 18
[2017-01-16] MEDS: SALMETEROL/FLUTICASONE 250/50 INHA INH SCH (08:47)
[2017-01-16] MEDS: FLUTICASONE 0.05% 16 GM NAS SPRAY NASAL SCH (08:48)
[2017-01-16] MEDS: GUAIFENESIN/DM (SR) TAB PO SCH (08:48)
[2017-01-16] MEDS: LORATADINE/PSEUDOEPHED (SR) TAB PO SCH (08:48)
[2017-01-16] MEDS: ALBUTEROL 0.083% (NEB) 2.5 MG/3 ML AMP HHN SCH ×2 (08:53→12:10)
--- NOTE | 2017-01-16 10:31 | RADRPT ---
PROCEDURE: XR Chest. CLINICAL INDICATION: Shortness of breath. TECHNIQUE: Single frontal view. COMPARISON: 04/12/2016. FINDINGS: There is mild atelectasis at the lung bases, improved. The lungs are otherwise clear. The heart size is normal. There is no pleural effusion. There is no pneumothorax. IMPRESSION: 1. Improved appearance of the lung bases. 2. No other change from 01/10/2017. RPTAT: QQ .Gunnar Del Rio MD, MD Date Time Electronically viewed and signed by .Gunnar Del Rio MD, MD on 01/16/2017 10:31 .R/
--- NOTE | 2017-01-16 11:50 | CONS ---
Date/Time of Note Date/Time of Note DATE: 01/16/17 TIME: 11:48 Assessment/Plan Assessment/Plan Additional Assessment/Plan Chest x-ray was reviewed from yesterday which is showing significant improvement in right lower lobe infiltrate. Assessment and recommendations; 1. Patient admitted with asthma exacerbation with right lower lobe pneumonia with marked clinical and radiological improvement. 2. History of depression. Discontinue Solu-Medrol. Switch the patient to prednisone 30 mg a day. Consider discharge on combination of Medrol Dosepak with Levaquin orally for 1 week. Consultation Date/Type/Reason Admit Date/Time Jan 10, 2017 at 14:50 Type of Consultation: Pulm 24 HR Interval Summary Free Text/Dictation Patient's condition is stable. Reporting decreased shortness of breath. Complains of very scant cough. Denies any wheezing. General exam; elderly woman, awake and alert. Currently in no distress. Exam/Review of Systems Vital Signs Vitals Vital Signs Date Time Temp Pulse Resp B/P Pulse Ox O2 Delivery O2 Flow Rate FiO2 01/16/17 08:54 72 20 91 Nasal Cannula 1.0 01/16/17 08:00 98.8 120/71 01/14/17 20:17 21 Intake and Output 01/15/17 01/15/17 01/16/17 15:00 23:00 07:00 Intake Total 950 ml 250 ml Balance 950 ml 250 ml Exam HEENT exam; supple neck, no JVD. No lymphadenopathy. Midline trachea. No thyromegaly. Pharynx is clear. Chest exam; clear to auscultation. S1-S2 audible, no murmurs. Regular rhythm. Abdomen exam; soft, nontender. No organomegaly. Bowel sounds audible. Extremity exam; no peripheral edema. OVERHEAD WORKER exam; no focal deficit. Results Result Diagram: 01/13/1743 01/13/17642 Medications Medications Current Medications Fluticasone Propionate (Flonase 0.05% Nasal) 1 spray DAILY NASAL Last administered on 01/12/17 09:11; Admin Dose 1 SPRAY; Start 01/10/17 at 17:00 Lorazepam (Ativan) 0.25 mg TID PRN PO ANXIETY Last administered on 01/15/17 20:47; Admin Dose 0.25 MG; Start 01/10/17 at 16:00 Salmeterol Xinafoate/ Fluticasone (Advair 250/50 Diskus) 1 inh BID INH Last administered on 01/16/17 08:47; Admin Dose 1 INH; Start 01/10/17 at 17:00 Sertraline HCl (Zoloft) 250 mg QHS PO Last administered on 01/15/17 20:47; Admin Dose 250 MG; Start 01/10/17 at 21:00 Trazodone HCl (Desyrel) 300 mg QHS PO Last administered on 01/15/17 20:48; Admin Dose 300 MG; Start 01/10/17 at 21:00 Ondansetron HCl (Zofran Inj) 4 mg Q6H PRN IV NAUSEA AND/OR VOMITING; Start at 16:00 Acetaminophen (Tylenol Tab) 650 mg Q6H PRN PO PAIN LEVEL 1-3 OR FEVER Last administered on 01/10/17 16:54; Admin Dose 650 MG; Start 01/10/17 at 16:00 Docusate Sodium (Colace) 100 mg Q12H PRN PO CONSTIPATION; Start 01/10/17 at 16 :00 Magnesium Hydroxide (Milk Of Mag) 30 ml DAILY PRN PO CONSTIPATION; Start 01/10 at 16:00 Pantoprazole (Protonix Tab) 40 mg DAILY@06 PO Last administered on 01/16/17 06:22; Admin Dose 40 MG; Start 01/10/17 at 17:00 Enoxaparin Sodium (Lovenox) 40 mg Q24H SC Last administered on 01/15/17 16:53 ; Admin Dose 40 MG; Start 01/10/17 at 17:00 Loratadine/ Pseudoephedrine Sulfate (Claritin-D 12 Hr) 1 tab Q12 PO Last administered on 01/16/17 08:48; Admin Dose 1 TAB; Start 01/11/17 at 12:30; Stop 01/16/17 at 12:29 Guaifenesin/ Dextromethorphan (Mucinex Dm) 1 tab BID PO Last administered on 08:48; Admin Dose 1 TAB; Start 01/11/17 at 12:30 Polyethylene Glycol 17 gm 17 gm DAILY PRN PO constipation Last administered on 01/12/17 20:26; Admin Dose 17 GM; Start 01/12/17 at 13:00 Levofloxacin/ Dextrose (Levaquin 750 Mg/ D5W 150 ml (Pmx)) 150 ml @ 100 mls/hr Q24H IVPB Last administered on 01/15/17 16:33; Admin Dose 100 MLS/HR; Start 01/12/17 at 16:15 Methylprednisolone Sodium Succinate (Solu-Medrol) 20 mg Q8H IV Last administered on 01/16/17 08:47; Admin Dose 20 MG; Start 01/13/17 at 17:00 JACK FLORES Jan 16, 2017 11:50
[2017-01-16 11:51] VITALS: BP 113/67; RESP 18
[2017-01-16] MEDS ORDERED: PRED10TA PO (13:29)
[2017-01-16] MEDS ORDERED: IPRA3AMP INHALATION (13:29)
[2017-01-16] MEDS ORDERED: PANT40TA4 PO (13:29)
[2017-01-16] MEDS ORDERED: LEVO500T72 PO ×2 (13:30→13:31)
--- NOTE | 2017-01-16 13:41 | DS ---
Date/Time of Note Date/Time of Note DATE: 01/16/17 TIME: 13:32 Discharge Summary Admission/Discharge Info Admit Date/Time Jan 10, 2017 at 14:50 Discharge Date/Time Discharge Diagnosis 1. Community acquired pneumonia, bilateral pulmonary infiltrates on CT scan, improved, on levaquin 2. Acute respiratory failure with hypoxia secondary to asthma exacerbation and pneumonia,improved 3. Asthma acute exacerbation, on neb/levaquin/steroid, tapering dosage of prednisone 4. Major depression and anxiety disorder, continue home medications 5. GERD, ptotonix Patient Condition: Stable Hx of Present Illness 66 yo F with PMH bronchial asthma with year exacerbations, depression, anxiety, insomnia, and hypothyroidism presented to ED after being sent by her PCP for hypoxia. Patient recently returned from a trip to [place] and [place] and has been experiencing coughing since Friday. Patient states people she was traveling with developed a cold which they passed to her. She states her symptoms started as a head cold and progressed to SOB with associated productive cough with yellow/white sputum, occasional wheezing, and subjective fevers. Patient states she has been getting progressively worse and using her rescue inhaler with no relief. She has also been using guaifenesin as well for cough. She was found to be saturating 85% on room air at her PCP office. When she presented to the ED she was found to be saturating 88% and given neb treatments, steroids, and started on antibiotics after finding of pneumonia on CXR. Patient states she has yearly exacerbations and usually presents to the ED but is discharged after stabilized. Patient has never needed to be intubated and is DNR/DNI. Denies any chest pain, dizziness, nausea, vomiting, or GI issues. Hospital Course CT lungs revealed bilateral pulmonary infiltrates, more on right. Patient is treated for community acquired pneumonia and COPD exacerbation with antibiotics( levaquin), nebulizer, and steroid. Symptoms improved. She will be discharged on levaquin, neb and tapering dosage of prednisone. Follow up with PCP outpatient. Patient has heartburns that improved with protonix. Home Meds Active Scripts Levofloxacin* (Levaquin*) 500 Mg Tablet, 500 MG PO DAILY for 5 Days, TAB Prov:RONNY HINTON MD 01/16/17 Ipratropium-Albuterol (Ipratropium-Albuterol) 0.5-3 Mg/3 Ml Ampul.neb, 3 ML INHALATION Q6, #30 VIAL Prov:RONNY HINTON MD 01/16/17 Prednisone* (Prednisone*) 10 Mg Tab, 20 MG PO DAILY for 3 Days, TAB Prov:RONNY HINTON MD 01/16/17 Pantoprazole* (Pantoprazole*) 40 Mg Tablet.dr, 40 MG PO DAILY@06 for 30 Days Prov:RONNY HINTON MD 01/16/17 Reported Medications Fluticasone Propionate* (Fluticasone Propionate* Nasal) 50 Mcg/[place] - 16 Gm [place].susp, 1 SPRAY NASAL DAILY, #1 BOTTLE TO EACH NOSTRIL 01/10/17 Albuterol Sulfate* (Proair HFA*) 8.5 Gm Hfa.aer.ad, 2 PUFF INH Q6H Y for WHEEZING AND SOB, #1 INHALER 01/10/17 Salmeterol Xinaf/Fluticasone* (Advair*) 250-50 Diskus Inhaler, 1 INH INHALATION BID, #1 INHALER 01/10/17 Trazodone Hcl* (Trazodone Hcl*) 300 Mg Tablet, 300 MG PO QHS, #30 TAB 01/10/17 Lorazepam* (Lorazepam*) 0.5 Mg Tablet, 0.25 MG PO TID Y for ANXIETY, TAB 01/10/17 Sertraline Hcl* (Zoloft*) 100 Mg Tablet, 250 MG PO QHS, #60 TAB 01/10/17 Levothyroxine Sodium* (Levoxyl*) 75 Mcg Tablet, 75 MCG PO BEFORE BREAKFAST, #30 TAB 01/10/17 Discontinued Reported Medications Lorazepam* (Ativan*) 0.5 Mg Tablet, 0.5 MG PO DAILY Y 02/05/13 Sertraline Hcl* (Sertraline Hcl*) 100 Mg Tablet, 150 MG PO DAILY 02/05/13 [Trazadone] No Conflict Check, 100 MG PO DAILY 02/05/13 Follow-up Plan PCP in one week Primary Care Provider MD JAMAAL Harris MAOGANG MD Jan 16, 2017 13:41
[2017-01-16] MEDS ORDERED: AMOX1TAB10 PO (14:30)
[2017-01-16 15:46] VITALS: BP 111/65; RESP 18
[2017-01-17] MEDS ORDERED: predniSONE 10 MG TAB PO SCH (09:00)
== END 2017-01-16 16:00 | disposition home or self-care (01) | DRG 871 ==
LOC: E/R 12:32 → MS4 14:50
PROVIDERS: ADMIT Internal Medicine; ATTEND Internal Medicine
DX: A41.9 Sepsis, unspecified organism (principal); J18.9 Pneumonia, unspecified organism; J96.01 Acute respiratory failure with hypoxia; E87.2 Acidosis; I82.409 Acute embolism and thrombosis of unspecified deep veins of unspecified lower extremity; J45.901 Unspecified asthma with (acute) exacerbation; Z66 Do not resuscitate; J45.998 Other asthma; F41.8 Other specified anxiety disorders; G47.00 Insomnia, unspecified; E87.6 Hypokalemia; E03.9 Hypothyroidism, unspecified; R65.20 Severe sepsis without septic shock; Y95 Nosocomial condition; K21.9 Gastro-esophageal reflux disease without esophagitis
CPT/HCPCS: 36415; 71010; 71250; 80048; 80069; 82550; 82553; 83605; 83735; 84443; 84484; 85025; 86738; 87040; 93005; 94640; 94644; 94667; 94668; 96374; 96375; J0456; J0696; J1650; J1956; J2920; J2930; J7030; J7040